=== PATIENT | female | born 1935 | race Caucasian/White ===

== ENCOUNTER 2024-11-30 11:40 | Emergency (ER) | payer MEDICARE, SELFPAY ==
--- OUTSIDE RECORDS SUMMARY | 2024-11-30 11:44 | XMS_ITS ---
Author Organization [facility] Address [address] [facility] [facility] [place] [address] Care Team Providers Care Community Board Member Name Role Phone Felix Ng MD Unavailable [phone] Wolfgang Herman MD Unavailable Unavailable Kanika Deleon MD Unavailable [phone] Sathish Asher MD Unavailable [phone] Lizbeth Price Unavailable [phone] RezaVi ames PA-C Unavailable Ileana Dee Primary Care Provider [phone] Active Problems Patient Care Coordination No te Formatting of this note migh t be different from the original. Non [place] PCP Lyric Boyd SCIENCE EDITOR Problem Noted Date Diagnosed Date Alzheimer's disease with late onset (CODE) 08/16 Chronic gout of multiple sites 03/18/2019 Diabetes mellitus type 2, diet-controlled 2018 History of cholecystectomy 03/18/2019 Irritable 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 03/18/2019 Personal history of malignant neoplasm of breast 03/18/2019 Primary osteoarthritis involving multiple joints 03/18/2019 S/P mastectomy, bilateral 03/18/2019 Nuclear sclerotic cataract of right eye 01/22/20 18 Nuclear sclerotic cataract of left eye 8 Stage 3 chronic kidney disease 10/08/2017 Typical atrial flutter 10/08/2017 Primary osteoarthritis of both knees 08/29/2017 S/P CABG x 1 02/12/2017 Hypomagnesemia 01/12/2017 Dysphagia 01/12/2017 GERD (gastroesophageal reflux disease) 7 Primary osteoarthritis of left knee, severe med 12/05/2016 Primary osteoarthritis of right knee, severe med and Pf 12/05/2016 History of cholecystitis 07/20/2016 Overview (07/20/2016): Status post laparoscopic cholecystectomy on March 09, 2016 History of biliary duct stent placement 04/14/20 16 MGUS, 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 Past Treatment and Therapy Plans Resolved Problems Problem Noted Date Diagnosed Date Resolved Date Intertrochanteric fracture o f left femur, closed, initial encounter 10/07/2017 04/12/2018 ACS (acute coronary syndrome) 02/08/2017 08/29/2017 Chest pain 01/12/2017 08/29/2017 Cholangitis 03/13/2016 07/20/2016 Cholecystitis, acute. s/p lap alexander 03/09/2016 03/09/20 16 07/20/2016 Preop cardiovascular exam 03/09/2016 Biliary obstruction 03/09/2016 07/20/19 17 Hypotension due to drugs 03/09/2016 Arthritis of knee 07/23/2014 08/29/2017 Other closed fractures of up per end of humerus 12/18/2012 08/29/2017 Dyslipidemia 09/09/2012 10/24/2012 Osteopenia 01/29/2017 Facial lesion 08/29/2017
--- OUTSIDE RECORDS SUMMARY | 2024-11-30 11:45 | XMS_ITS | Continuity of Care Document ---
Author Organization [facility] Address [address] [place] [address] Care Team Providers Care Industrial Machine Assembler Name Role Phone Felix Ng MD Unavailable [phone] Wolfgang Herman MD Unavailable Unavailable Kanika Deleon MD Unavailable [phone] Sathish Asher MD Unavailable + [phone] Lizbeth Price Unavailable [phone] RezaVi valdes PA-C Unavailable Ileana Dee Primary Care Provider [phone] Encounters Date Type Department Care Team Description 10/04/2024 Travel 10/04/2024 3:24 PM EDT - 10/04/2024 7:08 PM EDT Emergency [facility] Emergency Department [address] [place] [address] Woodrow Villa MD Hyperglycemia (Primary Dx) Discharge Disposition: Home or Self Care 09/11/2024 11:15 AM EST Office Visit [facility] Cardiology ([place]) [address] [place] [address] Felix Ng MD Coronary artery disease involving [place] coronary artery of [place] heart without angina pectoris (Primary Dx); Palpitations; Essential hypertension; Dyslipidemia; Valvular heart disease 08/08/2024 10:45 AM EST Office Visit [facility] [place] [address] [place] [address] Andrés Nuñez MD Coronary artery disease involving [place] coronary artery of [place] heart without angina pectoris (Primary Dx); Status post coronary artery bypass graft; Palpitations; Atrial flutter with rapid ventricular response (*); Valvular heart disease; Dyslipidemia; Essential hypertension; Ischemic heart disease; Mixed hyperlipidemia; Stage 3b chronic kidney disease (*) 07/23/2024 12:45 PM EST Office/Infusion [facility] [address] [place] [address] Sathish Asher MD Fowler, Jerri O History of bilateral breast cancer; Iron deficiency anemia, unspecified iron deficiency anemia type; MGUS (monoclonal gammopathy of unknown significance); Stage 3b chronic kidney disease (*) 07/02/2024 9:00 AM EST Ancillary Procedure [facility] Cardiology [facility]) [address] [place] [address] SOB (shortness of breath); Valvular heart disease; Atrial flutter with rapid ventricular response (*) 06/20/2024 8:30 AM EST Procedure visit [facility] Cardiology [facility]) [address] [place] [address] Felix Ng MD [facility] Hermelinda Misa Atrial flutter with rapid ventricular response (*); Palpitations 06/18/2024 10:00 AM EST Office Visit [facility] [place] - [address] [place] [address] Felix Ng MD Ruoff, Teresita C, DONOVANC Atrial flutter with rapid ventricular response (*) (Primary Dx); Coronary artery disease involving [place] coronary artery of [place] heart without angina pectoris; SOB (shortness of breath); Valvular heart disease; Essential hypertension; Dyslipidemia; Ischemic heart disease; Status post coronary artery bypass graft; Stage 3b chronic kidney disease (*) 06/13/2024 Travel 06/13/2024 12:45 PM EST Lab [facility] Laboratory [address] [place] [address] Felix Ng MD SOB (shortness of breath); Atrial flutter with rapid ventricular response (*); Palpitations 06/13/2024 11:30 AM EST Office Visit [facility] ([place]) [address] [place] [address] Felix Ng MD Coronary artery disease involving [place] coronary artery of [place] heart without angina pectoris (Primary Dx); SOB (shortness of breath); Atrial flutter with rapid ventricular response (*); Valvular heart disease; Essential hypertension; Dyslipidemia; Palpitations 02/04/2024 Travel 02/04/2024 11:29 AM EDT - 02/04/2024 11:59 PM EDT Hospital Encounter [facility] Radiology Department [address] [place] [address] Sathish Asher MD History of breast cancer; S/P mastectomy, bilateral; History of bilateral breast cancer; Left axillary swelling Discharge Disposition: Home or Self Care 01/21/2024 2:00 PM EDT Office/Infusion [facility] [address] [place] [address] Estiven Conley PA-C History of bilateral breast cancer (Primary Dx); History of breast cancer; S/P mastectomy, bilateral; Left axillary swelling; Encounter for follow-up surveillance of breast cancer; Iron deficiency anemia, unspecified iron deficiency anemia type; History of colonoscopy; MGUS (monoclonal gammopathy of unknown significance); Stage 3b chronic kidney disease (*); Gastroesophageal reflux disease, unspecified whether esophagitis present 01/10/2024 7:00 PM EDT Office Visit [facility] [address] [facility] [address] [place] [address] Adamaris Gonzales NP Dysuria (Primary Dx); Bacterial UTI; Glycosuria 11/19/2023 1:30 PM EDT Office Visit [facility] [address] [facility] [address] [place] [address] Vi Cobb PA-C Gastroesophageal reflux disease, unspecified whether esophagitis present (Primary Dx); Constipation, unspecified constipation type 08/13/2023 11:30 AM EST Office Visit [facility]) [address] [place] [address] Felix Ng MD Coronary artery disease involving [place] coronary artery of [place] heart without angina pectoris (Primary Dx); SOB (shortness of breath); Essential hypertension; Valvular heart disease; Dyslipidemia 06/18/2023 10:00 AM EST Ancillary Procedure [facility] ([place]) [address] [place] [address] SOB (shortness of breath) 06/12/2023 9:45 AM EST Office Visit [facility] [address] [place] [address] Vi Cobb PA-C Gastroesophageal reflux disease, unspecified whether esophagitis present (Primary Dx); Choking episode 06/01/2023 Travel 06/01/2023 7:41 AM EST - 06/01/2023 11:59 PM EST Hospital Encounter [facility] Radiology Department [address] [place] [address] Vi Cobb PA-C Gastroesophageal reflux disease, unspecified whether esophagitis present; Black stools; Chest pain, unspecified type Discharge Disposition: Home or Self Care 05/15/2023 2:10 PM EDT Office Visit [facility] ([place] [address] [place] [address] Fabiana Perez NP Essential hypertension (Primary Dx); Ischemic heart disease; Typical atrial flutter (*); Mixed hyperlipidemia; SOB (shortness of breath); Status post coronary artery bypass graft; Stage 3b chronic kidney disease (*) 05/03/2023 3:45 PM EDT Office Visit [facility] ([place] [address] [place] [address] Felix Ng MD Coronary artery disease involving [place] coronary artery of [place] heart without angina pectoris (Primary Dx); SOB (shortness of breath); Essential hypertension; Valvular heart disease; Dyslipidemia 05/01/2023 9:00 AM EDT Office Visit [facility] 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), in remission 02/19/2023 9:15 AM EDT Office/Infusion [address] [address] Sathish Asher MD Fowler, Jerri O Iron deficiency anemia, unspecified iron deficiency anemia type; History of breast cancer; MGUS (monoclonal gammopathy of unknown significance) 10/12/2022 3:15 PM EDT Office Visit [facility] ([place] [address] [place] [address] Felix Ng MD Coronary artery disease involving [place] coronary artery of [place] heart without angina pectoris (Primary Dx); SOB (shortness of breath); Essential hypertension; Valvular heart disease; Dyslipidemia 03/23/2022 Travel 03/23/2022 7:43 AM EDT - 03/23/2022 10:47 AM EDT Emergency [facility] Emergency Department [address] [place] [address] Tahir Wild DO Fall, initial encounter (Primary Dx); Sacral pain; Left hip pain Discharge Disposition: Home or Self Care 02/20/2022 Travel 02/20/2022 9:45 AM EDT Office/Infusion [address] [address] Sathish Asher MD Razzak, Jamilah, [place] Iron deficiency anemia, unspecified iron deficiency anemia type; History of breast cancer; MGUS (monoclonal gammopathy of unknown significance) 10/11/2021 Travel 10/11/2021 9:45 AM EDT Office Visit [facility]) [address] [place] [address] Felix Ng MD Coronary artery disease involving [place] coronary artery of [place] heart without angina pectoris (Primary Dx); SOB (shortness of breath); Essential hypertension; Valvular heart disease; Dyslipidemia 06/21/2021 9:30 AM EST Office Visit [facility] [address] [place] [address] Bharat Manning MD Alternating constipation and diarrhea, improved (Primary Dx); Iron deficiency anemia, unspecified iron deficiency anemia type; Gastroesophageal reflux disease without esophagitis 04/22/2021 Care Coordinates [facility] [address] [place] [address] Yasmin Del Real Counseling and coordination of care (Primary Dx) 03/17/2021 Care Coordinates [facility] [address] [place] [id number] Stormy Sommers LPN Counseling and coordination of care (Primary Dx) 02/14/2021 Travel 02/14/2021 8:45 AM EDT Office/Infusion [facility] [place] [address] [place] [address] Sathish Asher MD Hoots, Lizbeth Mahan PA History of breast cancer; Iron deficiency anemia, unspecified iron deficiency anemia type; MGUS (monoclonal gammopathy of unknown significance); Hypercalcemia 11/05/2020 11:20 AM EDT Ancillary Procedure [facility] Orth[facility] ([place]) [address] [place] [address] Macario Estevez MD 11/05/2020 Travel 11/05/2020 10:45 AM EDT Office Visit [facility] ([place]) [address] [place] [address] Mendel Han PA-C Chronic pain of right ankle (Primary Dx); Achilles tendinitis of right lower extremity 10/06/2020 Travel 10/06/2020 1:30 PM EDT Office Visit [facility] ([place]) [address] [place] [address] Felix Ng MD Coronary artery disease involving [place] coronary artery of [place] heart without angina pectoris (Primary Dx); SOB (shortness of breath); Essential hypertension; Valvular heart disease; Dyslipidemia 08/02/2020 Travel 08/02/2020 1:00 PM EST Office/Infusion [facility] [place] [address] [address] Sathish Asher MD Surratt, Jennifer K History of breast cancer; Iron deficiency anemia, unspecified iron deficiency anemia type; MGUS (monoclonal gammopathy of unknown significance); Hypercalcemia 03/09/2020 9:45 AM EDT Office Visit [facility] [address] [place] [address] Elisa Goodson PA-C Alternating constipation and diarrhea, improved (Primary Dx); Chronic nausea; Iron deficiency anemia, unspecified iron deficiency anemia type; Other irritable bowel syndrome 12/12/2019 1:15 PM EDT Ancillary Procedure [facility] Orthopedics [facility] Sports [facility] - [address] [place] [address] Juanito Christine PA-C 12/12/2019 Travel 12/12/2019 1:30 PM EDT Office Visit [facility] Orth[facility] - [address] [place] [address] Juanito Christine PACoreyC Left ankle pain, unspecified chronicity (Primary Dx); Tendonitis, Achilles, left 10/01/2019 Travel 10/01/2019 2:45 PM EDT Office Visit [facility] ([place] [address] [place] [address] Felix Ng MD Coronary artery disease involving [place] coronary artery of [place] heart without angina pectoris (Primary Dx); SOB (shortness of breath); Valvular heart disease; Essential hypertension; Dyslipidemia 07/14/2019 Care Coordinates Care Coordinates [address] [facility] [address] [place] [address] Cathleen Hahn, RN, BSN Counseling and coordination of care (Primary Dx) 07/09/2019 Travel 07/09/2019 12:24 AM EST - 07/09/2019 2:03 AM EST Emergency [facility] Emergency Department [address] [place] [address] Grey Washington MD Gastroenteritis (Primary Dx); Costochondritis, acute; Hypomagnesemia Discharge Disposition: Home or Self Care 05/30/2019 Travel 05/30/2019 2:00 PM EST Ancillary Procedure [facility] ([place] [address] [place] [address] Felix Ng MD Coronary artery disease involving [place] coronary artery of [place] heart without angina pectoris; SOB (shortness of breath); Valvular heart disease 05/23/2019 2:45 PM EST Office Visit [facility] [address] [address] [place] [address] Bharat Manning MD Iron deficiency anemia, unspecified iron deficiency anemia type (Primary Dx); Fatigue, unspecified type; Irritable bowel syndrome with diarrhea; Nausea and vomiting, intractability of vomiting not specified, unspecified vomiting type 04/02/2019 8:55 AM EDT Ancillary Procedure [facility] ([place]) [address] [place] [address] Wolfgang Herman MD 04/02/2019 Travel 04/02/2019 9:00 AM EDT Office Visit [facility] ([place] [address] [place] [address] Wolfgang Herman MD Left hip pain (Primary Dx); Trochanteric bursitis of left hip 03/25/2019 1:58 PM EDT Anesthesia Event [facility] Endoscopy Services [address] [place] [address] Home Saenz MD 03/25/2019 Travel 03/25/2019 12:06 PM EDT - 03/25/2019 11:59 PM EDT Hospital Encounter [facility] End[facility] Services [address] [place] [address] Hamzah, Elisa A, PA-C [facility] owen MD Periard, Shelli A, CRNA Ramsay, David B, MD Iron deficiency anemia, unspecified iron deficiency anemia type; Weight loss; Fatigue, unspecified type; Weakness Discharge Disposition: Home or Self Care 03/07/2019 Travel 03/07/2019 7:47 AM EDT - 03/07/2019 8:37 AM EDT Emergency [facility] Emergency Department [address] [place] [address] Елена Hunt MD Visit for suture removal (Primary Dx) Discharge Disposition: Home or Self Care 03/03/2019 Care Coordinates Care Coordinates [address] [facility] [address] [place] [address] pEifanio Wolfe LPN Counseling and coordination of care (Primary Dx) 03/03/2019 3:00 PM EDT Office Visit [facility] [address] [place] [address] Elisa Goodson PA-C Iron deficiency anemia, unspecified iron deficiency anemia type (Primary Dx); Weight loss; Fatigue, unspecified type; Weakness 03/03/2019 Travel 03/03/2019 11:45 AM EDT Office Visit [facility] Cardiology [facility]) [address] [place] [address] Felix Ng MD Coronary artery disease involving [place] coronary artery of [place] heart without angina pectoris (Primary Dx); SOB (shortness of breath); Valvular heart disease; Generalized weakness; Essential hypertension; Dyslipidemia 02/28/2019 Travel 02/28/2019 6:49 AM EDT - 02/28/2019 11:15 AM EDT Emergency [facility] Emergency Department [address] [place] [address] Woodrow Capone MD Fall, initial encounter (Primary Dx); Contusion of left eyelid, subsequent encounter; Contusion of left wrist, initial encounter; Shoulder strain, left, initial encounter; Facial laceration, initial encounter Discharge Disposition: Home or Self Care 02/05/2019 Travel 02/05/2019 7:03 AM EDT - 02/05/2019 11:59 PM EDT Hospital Encounter [facility] Imaging [address] [place] [address] Elisa Goodson PA-C Nausea and vomiting, intractability of vomiting not specified, unspecified vomiting type; Diarrhea, unspecified type Discharge Disposition: Home or Self Care 01/29/2019 9:45 AM EDT Office/Infusion [facility] [address] [facility] [address] Lizbeth Price PA Reavis, Judith Daniel, WOUND CARE COORDINATOR History of breast cancer; Iron deficiency anemia, unspecified iron deficiency anemia type; MGUS (monoclonal gammopathy of unknown significance); Hypercalcemia 01/14/2019 Travel 01/14/2019 11:45 AM EDT - 01/14/2019 11:59 PM EDT Hospital Encounter [facility] Radiology Department [address] [place] [address] Elisa Goodson PA-C Alternating constipation and diarrhea Discharge Disposition: Home or Self Care 01/14/2019 10:30 AM EDT Lab [facility] Osteoporosis [address] [address] Yanni Benavidez CMA Hypocalcemia 12/27/2018 Travel 12/27/2018 9:40 AM EDT Office Visit [facility] Osteoporosis [address] [address] Elisabeth Dunn PA-C Encounter for medication management (Primary Dx); Encounter for vitamin deficiency screening; History of hip fracture; Hypocalcemia 12/12/2018 2:00 PM EDT Office Visit [facility] [address] [place] [address] Travon Zuñiga MD Malaise and fatigue (Primary Dx); Diarrhea, unspecified type; Nausea; Abnormal urinalysis 11/25/2018 Travel 11/25/2018 11:30 AM EDT Office Visit [facility] [address] [place] [address] Abelardo Addison FNP Fall, subsequent encounter (Primary Dx); Injury of right wrist, subsequent encounter; Contusion of right hip, subsequent encounter; Hospital discharge follow-up 11/16/2018 Travel 11/16/2018 11:34 AM EDT - 11/16/2018 1:36 PM EDT Emergency [facility] Emergency Department [address] [place] [address] Елена Hunt MD Injury of right wrist, initial encounter (Primary Dx) Discharge Disposition: Home or Self Care 10/24/2018 9:00 AM EDT Medicare AWV [address] [address] Travon Zuñiga MD Type 2 diabetes mellitus without complication, without long-term current use of insulin (*) (Primary Dx); Essential hypertension; Mixed hyperlipidemia; History of gout; Iron deficiency anemia, unspecified iron deficiency anemia type; Gait instability; Medicare annual wellness visit, subsequent 08/14/2018 1:45 PM EST Office/Infusion [facility] [address] [facility] [address] Lizbeth Price PA Reavis, Yoly Mistry, WOUND CARE COORDINATOR History of breast cancer; Iron deficiency anemia, unspecified iron deficiency anemia type; MGUS (monoclonal gammopathy of unknown significance); Hypercalcemia 08/09/2018 9:30 AM EST Office Visit [address] [address] Travon Zuñiga MD Type 2 diabetes mellitus without complication, without long-term current use of insulin (*) (Primary Dx); Essential hypertension; Mixed hyperlipidemia; History of gout; Iron deficiency anemia, unspecified iron deficiency anemia type; Skin lesion of right ear 07/22/2018 1:15 PM EST Office Visit [facility] [address] [facility] [place] [address] Elisa Goodson PA-C Irritable bowel syndrome with diarrhea (Primary Dx) 07/01/2018 4:30 PM EST Office Visit [address] [address] Abelardo Addison FNP History of UTI (Primary Dx); Abnormal urinalysis; Type 2 diabetes mellitus without complication, without long-term current use of insulin (*); Primary osteoarthritis of both knees; Memory difficulty 05/29/2018 2:00 PM EST Office Visit [facility] Cardiology ([place]) [address] [place] [address] Felix Ng MD Coronary artery disease involving [place] coronary artery of [place] heart without angina pectoris (Primary Dx); SOB (shortness of breath); Essential hypertension; Dyslipidemia 05/07/2018 10:00 AM EDT Lab [facility] [address] [place] [address] Augustin Bautista LPN Hypocalcemia 04/18/2018 8:30 AM EDT Immunization [facility] [address] [place] [address] Need for prophylactic vaccination and inoculation against influenza 04/12/2018 8:45 AM EDT Office Visit [facility] [address] [place] [address] Travon Zuñiga MD Type 2 diabetes mellitus without complication, without long-term current use of insulin (*) (Primary Dx); Essential hypertension; Iron deficiency anemia, unspecified iron deficiency anemia type 04/11/2018 3:15 PM EDT Office Visit [facility] [address] [facility] [place] [address] Elisa Goodson PA-C Diarrhea, unspecified type (Primary Dx); Nausea 04/09/2018 2:10 PM EDT Procedure visit [facility] ([place]) [address] [place] [address] Wolfgang Herman MD Mitchell, Rebekah, RT (R) Pain (Primary Dx) 04/09/2018 1:50 PM EDT Office Visit [facility] ([place]) [address] [place] [address] Wolfgang Herman MD Bilateral chronic knee pain (Primary Dx); Coronary artery disease involving autologous vein coronary bypass graft with other forms of angina pectoris; Primary osteoarthritis of right knee, severe med and Pf; Primary osteoarthritis of left knee, severe med 02/12/2018 1:43 AM EDT - 02/12/2018 4:21 AM EDT Emergency [facility] Emergency Department [address] [place] [address] Sinan Saldivar MD Generalized abdominal pain (Primary Dx) Discharge Disposition: Home or Self Care 01/25/2018 11:00 AM EDT Lab [facility] Osteoporosis - [place] [address] [place] [address] Yanni Benavidez MACHINE PACKAGE SEALER Hypocalcemia 01/23/2018 9:20 AM EDT - 01/23/2018 9:45 AM EDT Surgery [facility] Surgical Services [address] [place] [address] Ron Harper MD RIGHT EYE CATARACT EXTRACTION WITH INTRAOCULAR IMPLANT 01/23/2018 8:54 AM EDT Anesthesia Event [facility] Surgical Services [address] [place] [address] Augustin Dodge MD Sojka, Peter J, MD 01/23/2018 7:08 AM EDT - 01/23/2018 9:31 AM EDT Hospital Encounter [facility] Surgical Services [address] [place] [address] Ron Harper MD Nuclear sclerotic cataract of right eye (Primary Dx) Discharge Disposition: Home or Self Care 01/08/2018 2:00 PM EDT ADD/ADHD [facility] [address] [place] [address] Travon Zuñiga MD Type 2 diabetes mellitus without complication, without long-term current use of insulin (*) (Primary Dx); Essential hypertension; Mixed hyperlipidemia; History of gout; Iron deficiency anemia, unspecified iron deficiency anemia type; Primary osteoarthritis of both knees 01/04/2018 9:30 AM EDT Lab [facility] Osteoporosis - [place] [address] [place] [address] Yanni Benavidez MACHINE PACKAGE SEALER Hypercalcemia 01/02/2018 9:40 AM EDT - 01/02/2018 10:10 AM EDT Surgery [facility] Surgical Services [address] [place] [address] Ron Harper MD LEFT EYE CATARACT EXTRACTION WITH INTRAOCULAR IMPLANT 01/02/2018 9:08 AM EDT Anesthesia Event [facility] Surgical Services [address] [place] [address] Augustin Dodge MD Baird, Kelly W, MD 01/02/2018 7:25 AM EDT - 01/02/2018 9:39 AM EDT Hospital Encounter [facility] Surgical Services [address] [place] [address] Ron Harper MD Nuclear sclerotic cataract of left eye (Primary Dx) Discharge Disposition: Home or Self Care 01/01/2018 11:15 AM EDT - 01/01/2018 11:59 PM EDT Hospital Encounter [facility] Radiology Department [address] [place] [id number] Jairo Johnson MD MGUS (monoclonal gammopathy of unknown significance) Discharge Disposition: Home or Self Care 01/01/2018 10:30 AM EDT Office Visit [facility] [address] [facility] [place] [address] Jairo Johnson MD History of breast cancer; MGUS (monoclonal gammopathy of unknown significance) 12/28/2017 9:00 AM EDT Lab [facility] Osteoporosis - [address] [address] Yanni Benavidez CMA Hypocalcemia; Other osteoporosis without current pathological fracture 12/26/2017 Documentation Only [facility] - [place] [address] [place] [phone] Elisabeth Dunn PA-C 12/26/2017 12:48 PM EDT - 12/26/2017 4:06 PM EDT Emergency [facility] Emergency Department [facility] [place] [address] Sinan Singh MD Arthralgia, unspecified joint (Primary Dx) Discharge Disposition: Home or Self Care 12/25/2017 Prep for Surgery [facility] [place] [address] Ron Harper MD Nuclear sclerotic cataract of left eye; Nuclear sclerotic cataract of right eye 12/25/2017 9:00 AM EDT Lab [facility] [address] [place] [address] Bety Seth MOA Type 2 diabetes mellitus without complication, without long-term current use of insulin (*); History of gout; Hypocalcemia 12/20/2017 1:15 PM EDT Office Visit [facility] [address] [facility], [place] [address] Kanika Deleon MD Irritable bowel syndrome, unspecified type (Primary Dx); Lactose intolerance in adult; Bilious vomiting with nausea; Regurgitation; Diarrhea, unspecified type 12/19/2017 8:30 AM EDT Further Clinical Support [facility] Osteoporosis - [address] [address] Elisabeth Dunn PAAugustin Gates LPN Other osteoporosis without current pathological fracture; Encounter for medication management; Encounter for vitamin deficiency screening; History of femur fracture; History of humerus fracture 12/04/2017 3:00 PM EDT Office Visit [address] [address] Elisabeth Dunn PACoreyC Other osteoporosis without current pathological fracture (Primary Dx); Encounter for medication management; Encounter for vitamin deficiency screening; History of femur fracture; History of humerus fracture; History of vitamin D deficiency 11/19/2017 11:34 AM EDT - 11/19/2017 11:59 PM EDT Hospital Encounter [facility] Imaging [address] [address] Elisabeth Dunn PACoreyC Other osteoporosis without current pathological fracture; Encounter for medication management; Encounter for vitamin deficiency screening; History of femur fracture; History of vitamin D deficiency Discharge Disposition: Home or Self Care 11/19/2017 9:20 AM EDT Office Visit [facility] Osteopor[facility] [address] [place] [address] Elisabeth Dunn PA-C Other osteoporosis without current pathological fracture (Primary Dx); Encounter for medication management; Encounter for vitamin deficiency screening; History of femur fracture; History of vitamin D deficiency 11/12/2017 9:45 AM EDT Office Visit [facility] [address] [place] [address] Travon Zuñiga MD Closed displaced intertrochanteric fracture of left femur with routine healing (Primary Dx) 11/06/2017 3:15 PM EDT Office Visit [facility] [address] [place] [address] Travon Zuñiga MD Intractable diarrhea (Primary Dx); Type 2 diabetes mellitus without complication, without long-term current use of insulin (*); History of gout 10/07/2017 4:16 AM EDT - 10/10/2017 2:09 PM EDT Hospital Encounter [facility] Orthopedics [address] [place] [phone] Waldo Heaton DO Intertrochanteric fracture of left femur, closed, initial encounter (*) (Primary Dx); Fall at home, initial encounter; Acute hip pain, left; Hematoma of left hip, initial encounter; Closed fracture of right hip, initial encounter (*); Type 2 diabetes mellitus with hyperglycemia, without long-term current use of insulin (*); Type 2 diabetes mellitus without complication, without long-term current use of insulin (*); Essential hypertension; Mixed hyperlipidemia; Coronary artery disease involving [place] coronary artery of [place] heart without angina pectoris; History of gout; Typical atrial flutter (*) Discharge Disposition: SNF [facility] Medicare Bed 10/07/2017 10:34 AM EDT Anesthesia Event [facility] Surgical Services [address] [place] [phone] Waldo Meade MD Smith, Rachel H, CRNA 10/07/2017 10:00 AM EDT - 10/07/2017 11:28 AM EDT Surgery [facility] Surgical Services [address] [place] [address] Waldo Heaton DO LEFT HIP ORIF 10/04/2017 11:02 AM EDT - 10/04/2017 11:59 PM EDT Hospital Encounter [facility] Radiology Department [address] [place] [address] Les Hathaway MD Bilious vomiting with nausea Discharge Disposition: Home or Self Care 09/14/2017 12:45 PM EST Office Visit [facility] [address] [place] [address] Les Hathaway MD Bilious vomiting with nausea (Primary Dx) 08/29/2017 3:00 PM EST Medicare AWV [address] [address] Travon Zuñiga MD Medicare annual wellness visit, subsequent (Primary Dx); Type 2 diabetes mellitus without complication, without long-term current use of insulin (*); Essential hypertension; Mixed hyperlipidemia; History of gout; Primary osteoarthritis of both knees 08/27/2017 9:30 AM EST Lab [address] [address] Bety Seth MOA Iron deficiency anemia, unspecified iron deficiency anemia type; Type 2 diabetes mellitus without complication, without long-term current use of insulin (*); History of gout 08/02/[address] [address] Travon Zuñiga MD Iron deficiency anemia, unspecified iron deficiency anemia type (Primary Dx); History of gout; Type 2 diabetes mellitus without complication, without long-term current use of insulin (*) 07/20/2017 3:00 PM EST Office Visit [address] [address] Jesus Almeida MD Acute suppurative otitis media of left ear without spontaneous rupture of tympanic membrane, recurrence not specified (Primary Dx) 07/02/2017 5:20 PM EST Office Visit [facility] [address] [place] [address] Abelardo Addison FNP URI with cough and congestion (Primary Dx); Gastroesophageal reflux disease without esophagitis 06/20/2017 9:30 AM EST Office Visit [facility] [address] [place] [address] Travon Zuñiga MD Hospital discharge follow-up (Primary Dx); Type 2 diabetes mellitus without complication, without long-term current use of insulin (*); Gastroesophageal reflux disease, esophagitis presence not specified 06/19/2017 9:10 AM EST Office Visit [facility] ([place] [address] [place] [address] Wolfgang Herman MD Primary osteoarthritis of left knee, severe med (Primary Dx); Primary osteoarthritis of right knee, severe med and Pf 05/03/2017 3:00 PM EDT Immunization [facility] [address] [place] [address] Need for prophylactic vaccination and inoculation against influenza 04/19/2017 2:45 PM EDT Office Visit [facility] Cardiology ([place]) [address] [place] [address] Felix Ng MD Coronary artery disease involving [place] coronary artery of [place] heart without angina pectoris (Primary Dx); SOB (shortness of breath); Essential hypertension; Dyslipidemia 02/12/2017 5:40 AM EDT - 02/12/2017 11:59 PM EDT Hospital Encounter [facility] Critical Care Transport [address] [place] [address] Abelardo Salazar MD Khawaja, Usman A, MD Discharge Disposition: Acute Care Hospital- Critical Access Hospital 02/12/2017 7:40 AM EDT - 02/12/2017 8:40 AM EDT Surgery [id number]|2024-11-30 11:45:00|2024-11-30 11:45:00|XMS_ITS|BKG CHRISTINA|External Medical Summaries|[id number]|" Clinical Summary Created on: November 30, 2024 Mary Isidro : 1935 Sex: Female Author Organization [facility] visits prior to 09/15/2023[place] [address] Care Team Providers Care Industrial Machine Assembler Name Role Phone Donovan DANIELS MD, Akira Quan Unavailable + [phone] Lyric Boyd MUSIC DIRECTOR Primary Care Provider [phone] Allergies Active Allergy Reactions Criticality Noted Date Comments Donepezil Other (See Comments) 06/18/2019 confusion Ciprofloxacin Diarrhea Low 02/27/2012 cipro Propoxyphene N-Acetaminophen Nausea (intolerance),Nause a & Vomiting (ALLERGY/intoleranc e),Other (See Comments) Medium 07/19/2012 Propoxyphene Nausea (intolerance) 07/19/2012 Hydrocodone-Acetaminophe n Nausea & Vomiting (ALLERGY/intoleranc e) Medium 11/19/2017 With ALL narcotics Zoledronic Acid Other (See Comments) Medium 12/31/2017 Caused calcium to be drawn out of bones Medications Medication Sig Dispensed Refills Start Date End Date Status OMEGA-3/DHA/EPA/FISH OIL (FISH OIL-OMEGA-3 FATTY ACIDS) 300-1,000 mg capsule Take 2 capsules (2 g total) by mouth daily. 0 Active simvastatin (ZOCOR) 10 MG tabletIndications:Pure hypercholesterolemia Take 1 tablet (10 mg total) by mouth nightly. 90 tablet 1 9 Active ondansetron (ZOFRAN) 4 MG tabletIndications:Nausea TAKE 1 TABLET BY MOUTH EVERY 8 HOURS NEEDED FOR NAUSEA / VOMITING. 30 tablet 0 0 Active latanoprost (XALATAN) 0.005 % ophthalmic solution Place 1 drop into both eyes nightly. 0 1 Active blood-glucose meter kit One touch ultra (Use to test sugar daily) 1 each 0 2 Active cinnamon bark, bulk, Powd Take 1,000 mg by mouth daily. 0 Active lidocaine (LIDODERM) 5 % patchIndications:Pain in the coccyx Apply patch to painful area. Patch may remain in place for up to 12 hours in a 24 hour period. 30 patch 0 2 Active Additional Information Patient taking differently: Apply patch to painful area as needed. Patch may remain in place for up to 12 hours in a 24 hour period., Informant: Child, Pharmacy, Reported on 01/12/2023 ferrous sulfate 325 (65 FE) MG EC tabletIndications:Iron 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 Take 1 tablet twice daily 180 tablet 2 2 Active Additional Information Patient taking differently: Take 1 tablet BY MOUTH ONCE daily, Informant: Child, Reported on 01/12/2023 atenoloL (TENORMIN) 25 MG tabletIndications:Essenti al hypertension TAKE 1 TABLET BY MOUTH DAILY 90 tablet 3 3 Active miscellaneous medical supply Mis Rolling walker with seat........... ..(M17.0)...... ...patient is requesting a size petite 1 each 0 3 Active lactobacillus rhamnosus, GG, (CULTURELLE) 10 billion cell capsule Take 1 capsule by mouth daily. 0 Active acetaminophen (TYLENOL) 650 MG CR tablet Take 1 tablet (650 mg total) by mouth every 8 (eight) hours as needed for Pain. 0 Active allopurinoL (ZYLOPRIM) 100 MG tablet TAKE 1 TABLET BY MOUTH DAILY 90 tablet 3 3 Active diclofenac (VOLTAREN) 1 % Gel gelIndications:Primary osteoarthritis involving multiple joints APPLY 1 GRAM TO AFFECTED AREA(S) TOPICALLY 2 TO 3 TIMES DAILY 300 g 3 3 Active pantoprazole (PROTONIX) 40 MG tabletIndications:Gastroe sophageal reflux disease without esophagitis TAKE 1 TABLET BY MOUTH DAILY 90 tablet 3 3 Active amLODIPine (NORVASC) 5 MG tablet Take 1 tablet (5 mg total) by mouth daily. 0 3 Active potassium chloride ER (KLOR-CON-M, K-DUR) 20 MEQ extended release tablet TAKE 1 TABLET BY MOUTH DAILY 90 tablet 3 3 Active ONETOUCH DELICA PLUS LANCET 30 gauge Misc USE TO CHECK BLOOD SUGAR TWICE DAILY 200 each 3 3 Active blood sugar diagnostic (ONETOUCH ULTRA TEST) Strp test strips CHECK BLOOD SUGAR TWICE DAILY 200 strip 3 4 Active dapagliflozin propanediol (FARXIGA) 5 mg tabletIndications:Type 2 diabetes mellitus with diabetic nephropathy, without long-term current use of insulin (HCC) Take 1 tablet (5 mg total) by mouth daily. 30 tablet 5 4 Active glimepiride (AMARYL) 4 MG tabletIndications:Type 2 diabetes mellitus with stage 3a chronic kidney disease, without long-term current use of insulin (HCC) Take 1 tablet (4 mg total) by mouth daily before breakfast. 90 tablet 3 4 Active Active Problems Problem Noted Date Diagnosed Date Moderate late onset Alzheimer's dementia 024 Stage 3b chronic kidney disease 01/20/2023 H/O total knee replacement, right 01/15/2023 Primary osteoarthritis of right knee 01/11/2023 Type 2 diabetes mellitus with diabetic nephropat hy 10/19/2022 Overview: 08/04/22 visit - addressed nephropathy query - Stable based upon symptoms and exam. Continue current treatment plan and follow up at least yearly. Diabetes 10/19/2022 Overview: 12/07/21 visit - A1C was found to be 8.1% Memory deficit 09/05/2022 Chronic right shoulder pain 08/04/2022 Primary osteoarthritis of knees, bilateral 05/18 Malaise 05/07/2019 Pure hypercholesterolemia 03/18/2019 Gastroesophageal reflux disease without esophagi tis 03/18/2019 Coronary artery disease invo lving [place] coronary artery of [place] heart without angina pectoris 03/18/2019 S/P CABG x 1 03/18/2019 Chronic gout of multiple sites 03/18/2019 Primary osteoarthritis involving multiple joints 03/18/2019 History of cholecystectomy 03/18/2019 Essential hypertension 03/18/2019 Irritable 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 03/18/2019 Iron deficiency anemia varun samson to inadequate dietary iron intake 03/18/2019 History of right breast cancer 03/18/2019 History of cancer of left breast 03/18/2019 S/P mastectomy, bilateral 03/18/2019 Resolved Problems Problem Noted Date Diagnosed Date Resolved Date Gastroenteritis 07/14/2019 09/17/2019 Weight loss, abnormal 03/18/20192020 Choledocholithiasis with acu te cholecystitis with obstruction 03/22/2016 03/18/2019 Sebaceous cyst 10/14/2015 03/18/2019 Solar keratosis, lip 08/01/2012 019 Inflamed sebaceous cyst 07/19/201209/2018 Immunizations Name Administration Dates Next Due Flu Vaccine 65yr Or Older (H IGH DOSE QUAD-FLUZONE) Inactivated Quadrivalent 04/17/2023,04/13/2022,05/02/2021 Flu Vaccine 6mo and up (FLUZONE/FLULAVAL/FLUARIX VIAL OR SYRINGE) INACTIVATED QUADRAVALENT 04/13/2020,05/07/2019 Influenza (Historical) 04/18/2018,2016,05/19/2016,2014,04/24/2014,04/14/2013,05/14/2010 Pneumococcal (Historical) 12/30/2013 Purple Top Pfizer SARS-CoV-2 Vaccine 03/17/2021, 02/24/2021 Tdap (ADACEL, BOOSTRIX) 02/28/2019 flu Vaccine 65yr or Older (H IGH DOSE-FLUZONE) Inactivated Trivalent 04/18/2018,05/03/2017 pneumococcal conjugate 13-va lent (PREVNAR 13) 03/18/2019 Family History Medical History Relation Comments Heart disease Father Dementia Mother Diabetes Mother Cancer Neg Hx Relation Status Comments Father Mother Social History Tobacco Use Types Packs/Day Years Used Date Smoking Tobacco: Never Smokeless Tobacco: Never Tobacco Cessation:Counseling Given: Not Answered Alcohol Use Standard Drinks/Week Comments No 0 (1 standard drink = 0.6 oz pur e alcohol) Utilities Answer Date Recorded In the past 12 months has e [employer], gas, oil, or water [employer] threatened to shut off services in your home? No 07/23/2023 Social Connection and Isolation Panel [NHANES] A nswer Date Recorded In a typical week, how many times do you talk on the phone with family, friends, or neighbors? Once a week 02/09/20 How often do you get togethe r with friends or relatives? Patient refused 02/08/2023 How often do you attend chur ch or congregational services? 1 to 4 times per year 02/08/2023 Do you belong to any clubs o r organizations such as mandaeism groups, unions, fraternal or athletic groups, or school groups? No 02/08/2023 How often do you attend meet ings of the clubs or organizations you belong to? Never 02/08/2023 Are you , , di vorced, , never , or living with a partner? 02/08/2023 AUDIT-C Answer Date Recorded Q1: How often do you have a drink containing alcohol? Never 02/08/2023 Q2: How many drinks containi ng alcohol do you have on a typical day when you are drinking? Patient does not drink Q3: How often do you have si x or more drinks on one occasion? Never 02/08/2023 Overall Financial Resource Strain (CARDIA) Answe r Date Recorded How hard is it for you to pa y for the very basics like food, housing, medical care, and heating? Somewhat hard 02/08/2023 PHQ-2 Answer Date Recorded SDWA PHQ2 SCORE 0 08/16/2023 [facility] Questionnaire Answer Date Recorded Do you feel stress - tense, restless, nervous, or anxious, or unable to sleep at night because your mind is troubled all the time - these days? Only a little 02/08/2023 Exercise Vital Sign Answer Date Recorde d On average, how many days pe r week do you engage in moderate to strenuous exercise (like a brisk walk)? 0 days 02/08/2023 On average, how many minutes do you engage in exercise at this level? 10 min 02/08/2023 Hunger Vital Sign Answer Date Recorded Within the past 12 months, y ou worried that your food would run out before you got the money to buy more. Sometimes true Within the past 12 months, t he food you bought just didn't last and you didn't have money to get more. Patient refused 02/2024 PRAPARE - Transportation Answer Date Re corded In the past 12 months, has l ack of transportation kept you from medical appointments or from getting medications? No 02/2024 In the past 12 months, has l ack of transportation kept you from meetings, work, or from getting things needed for daily living? No 07/23/2023 Housing Stability Vital Sign Answer Gustavo e Recorded In the last 12 months, was t here a time when you were not able to pay the mortgage or rent on time? Patient refused 07/23/19 24 Number of Places Lived in the Last Year Not on f ile 07/23/2023 In the last 12 months, was t here a time when you did not have a steady place to sleep or slept in a assisted (including now)? No 07/23/2023 Sex and Gender Information Value Date Recorded Sex Assigned at Not on file Gender Identity Not on file Sexual Orientation Not on file Last Filed Vital Signs Vital Sign Reading Time Taken Comments Blood Pressure 145/62 08/16/2023 11:32 AM EST Pulse 65 08/16/2023 11:32 AM EST Temperature 36.3 C (97.3 F) 08/16/2023 11:32 AM EST Respiratory Rate 17 08/16/2023 11:3 2 AM EST Oxygen Saturation 99% 08/16/2023 11: 32 AM EST Inhaled Oxygen Concentration - - Weight 66.6 kg (146 lb 12.8 oz) 024 11:32 AM EST Height 149.9 cm (4' 11 ) 08/16/2023 11: 32 AM EST Body Mass Index 29.65 08/16/2023 11:32 AM EST Plan of Treatment Health Maintenance Due Date Last Done Comments URINE MICROALBUMIN 10/18/2023 10/17/2022, 0 10/19/2020, 09/17/2019 HEMOGLOBIN A1C 01/22/2024 07/24/2023, 08/0 07/2022, 10/17/2022, Additional history exists Medicare Annual Wellness Visit 02/17/2024 0 02/16/2023, 02/07/2022, 01/21/2021, Additional history exists COVID-19 Vaccine (2022-2 4 season) 2024 03/17/2021, 02/24/2021 FOOT EXAM 07/26/2024 07/26/2023, 07/16, 04/13/2022, Additional history exists OPHTHALMOLOGY EXAM 08/09/2024 08/09/2023, 1 , 04/12/2023, Additional history exists INFLUENZA VACCINE 02/13/2025 04/17/2023, , 05/02/2021, Additional history exists Goals Goal Patient Goal Type Associated Problems Recent Progress Patient-Stated? Author Physical Therapy Goals PT Goals No Diane Gurrola, PT Note: Short Term Goals (STG) - Time Frame 4 weeks STG 1: Patient will be able to achieve at least a 10 degree improvement in R knee extension to improve gait quality (baseline -24 degrees). Met: -10 degrees 03/20/23 STG 2: Patient will be able to achieve 120 degrees of R knee flexion in order to improve ability to transfer out of a chair. (Baseline: 114 degrees), met - 122 degrees 03/20/23 Skilled Nursing Goals (LTG) - Time Frame 8 weeks LTG 1: Patient will be able to ambulate 300' for community ambulation with LRAD to be able to go to the store with her daughter. - partially met 04/10/23, 296 feet around clinic with SPC usage LTG 2: Patient to be able to achieve personal goal of returning to driving. - not driving due to eye issues and concerns of memory issues LTG 3: Patient will achieve > 120 degrees R knee flexion to be able to ascend/descend steps with a reciprocal pattern. - met 04/12 120 degrees R knee AROM LTG 4: Patient will be able to achieve within 5 degrees of full R knee ex for improved gait pattern. - not met, plauted at -12 degrees R knee AROM LTG 5: Patient will be able to achieve at least 4+ R LE strength globally to improve functional independence with ADL's - partially met 04/12 R L Hip flexion 5 4 abduction 4 4 adduction 4 4 IR 4+ 4+ ER 4+ 4+ Knee Flex 5 5 Ex 5 5 Ankle DF 4 5 LTG 6: Patient will be able to stand on R LE with no UE support for 5-10 seconds for decreased fall risk. - 04/12 3s hold before LOB, vision contributing to balance LTG 7: Patient will be able to improve overall functioning with KOOS score from 13 to <5 . - 04/12 KOOS score 6 Medical Devices Implanted Type Area Ampoule Examiner Device Identifier Shelf Expiration Date Model / Serial / Lot Cement Bone Simplex P Tobramycin Full Dose Radiopaque Preblend Sterile - [id number] Implanted:Qty: 2 on 01/15/2023 by Oc Fatima MD at [facility] [employer]. Right: Knee [employer] [id number] 04/14/2024 6197-9-00 1 / / [id number] Component Patellar Triathlon X3 H9 Mm Od29 Mm Knee Asymmetric Sterile - [id number] Implanted:Qty: 1 on 01/15/2023 by Oc Fatima MD at [facility] Other Right: Knee [employer] 11/20/2027 5551-G-29 9-E / / [id number] Peg Fixation Triathlon Knee Femoral Modular - [id number] Implanted:Qty: 1 on 01/15/2023 by Oc Fatima MD at [facility] Other Right: Knee [employer] 07/01/2027 5575-X-00 0 / / [id number] Component Femoral Triathlon 2 Knee Right Posterior Stabilize Cement Sterile Latex Free Total Knee Arthroplasty - [id number] Implanted:Qty: 1 on 01/15/2023 by Oc Fatima MD at [facility] Other Right: Knee [employer] 09/14/2024 5515-F-20 2 / / [id number] Baseplate Tibial Triathlon Cocr 2 [place] Knee Cement Total Stabilize Sterile Latex Free - [id number] Implanted:Qty: 1 on 01/15/2023 by Oc Fatima MD at [facility] Other Right: Knee [employer] 11/01/2027 5521-B-20 0 / / [id number] Tibial H9 Mm 2 Posterior Stabilize Bearing Triathlon Insert X3 Knee Sterile Latex Free - [id number] Implanted:Qty: 1 on 01/15/2023 by Oc Fatima MD at [facility] Other Right: Knee [employer] [id number] 09/11/2027 5532-G-20 9-E / / [id number] Advance Directives Documents on File Type Date Recorded Patient Hotel Front Desk Clerk Expl anation Power of It Support Manager 04/03/2022 8:46 AM HC Po A Latest Code Status on File Code Status Date Activated Date Inactivated Comments Full Code 01/16/2023 1:06 PM Code Status History Code Status Date Activated Date Inactivated Comments Full Code 01/15/2023 10:07 AM 01/16/2023 1:06 PM Care Teams Industrial Machine Assembler Relationship Specialty Start Date End Date Lyric Boyd NP [address] [place] [id number] PCP - General Nurse Practitioner 03/06/19 Akira Man II, MD [address] [place] [id number] Referring Provider Surgery 07/19/12 "
--- OUTSIDE RECORDS SUMMARY | 2024-11-30 11:46 | XMS_ITS | Encounter Summary ---
Author Organization [facility] Address [address] [facility] [place] [address] Care Team Providers Care Visitor Services Representative Name Role Phone Home [place] REGINALD Unavailable [phone] Patricio Gaona MD Unavailable [phone] Lexi Head RN Unavailable Unavailable Felix Ng MD Unavailable [phone] Les Hathaway MD Unavailable [phone] Wolfgang Herman MD Unavailable Unavailable Kanika Deleon MD Unavailable [phone] Lyric Byod COAT OPERATOR INSULATOR Primary Care Provider + [phone] Sathish Asher MD Unavailable + [phone] Lizbeth Price Unavailable [phone] [facility] PA-C Unavailable Ileana Dee Unavailable [phone] Ileana Dee Primary Care Provider [phone] Reason for Referral * Case Request (Routine) - Closed Specialty Diagnoses / Procedures Referred By Contac t Referred To Contact Diversional Therapist Procedures CASE REQUEST LACQUER SIZER: Left Heart Cath Anitra Salazar MD [address] [place] [address] Phone: tel: fax: [facility] Cardiovascular Lab [address] [place] [id number] Phone: tel: fax: Referral ID Status Reason Start Date Expiration Date Visits Re quested Visits Authorized [id number] Closed 02/11/2017 08/09/2017 1 1 Encounter Details Date Type Department Care Team (Late st Contact Info) Description 02/11/2017 Prep for Surgery [facility]) [address] [place] [address] Anitra Salazar MD [address] [place] [address] Social History Tobacco Use Types Packs/Day Years Used Date Smoking Tobacco: Never Smokeless Tobacco: Never Alcohol Use Standard Drinks/Week Comments No 0 (1 standard drink = 0.6 oz pur e alcohol) Comments No Sex and Gender Information Value Date Recorded Sex Assigned at Not on file Legal Sex Female 7:30 PM EST Gender Identity Not on file Sexual Orientation Not on file documented as of this encounter Functional Status * Are you deaf or do you have difficulty hearing? Answer Date of Assessment Author Yes 02/10/2017 11:07 AM Enrique Fernández RN * Are you blind or do you have serious difficulty seeing, even when wearing glasses? Answer Date of Assessment Author No 02/10/2017 11:07 AM Enrique Fernández RN * Do you have serious difficulty walking or climbing stairs? Answer Date of Assessment Author No 02/10/2017 11:07 AM Enrique Fernández RN * Do you have difficulty dressing or bathing? Answer Date of Assessment Author No 02/10/2017 11:07 AM Enrique Fernández RN * Because of a physical, mental, or emotional condition, do you have difficulty doing errands alone such as visiting a doctor's office or shopping? Answer Date of Assessment Author No 02/10/2017 11:07 AM Enrique Fernández RN documented as of this encounter Mental Status * Because of a physical, mental, or emotional condition, do you have serious difficulty concentrating, remembering, or making decisions? Answer Entry Date Author No 02/10/2017 11:07 AM EDEnrique Cabello RN documented in this encounter H&P Notes * Anitra Salazar MD - 02/11/2017 9:04 AM EDT Chief Complaint Patient presents with â€¢ Chest Pain central chest, non radiating HISTORY OF PRESENT ILLNESS : This is a 81 y.o. year old female with CAD status post multivessel bypass surgery, breast cancer status post bilateral mastectomy, hypertension, dyslipidemia who has beenadmitted with chest pain. She underwent a stress test 2 weeks ago which was negative. But she came with chest and throat pain. Her enzyme showed minimally elevated troponin. She did well with medical therapy and remains asymptomatic. Her EKG is also abnormal suggesting anterior ischemia. â€¢ allopurinol 300 mg Oral HS â€¢ aspirin 81 mg Oral Daily â€¢ chlorhexidine 15 mL Mouth/Throat 2 times per day â€¢ clopidogrel bisulfate 75 mg Oral Daily â€¢ isosorbide mononitrate 60 mg Oral Daily â€¢ metFORMIN 500 mg Oral BRK â€¢ metoprolol succinate 25 mg Oral Daily â€¢ pantoprazole sodium 40 mg Oral Daily â€¢ pravastatin sodium 10 mg Oral HS Allergies Allergen Reactions â€¢ Darvocet [Propoxyphene N-Acetaminophen] Nausea Only and Vertigo â€¢ Ciprofloxacin cipro â€¢ Darvon PHYSICAL EXAM: BP 131/61 Pulse 72 Temp 99.1 Â°F (37.3 Â°C) (Oral) Resp 13 Ht 5' (1.524 m) Wt 158 lb 4.6 oz (71.8 kg) SpO2 99% BMI 30.91 kg/m2 Intake/Output Summary (Last 24 hours) at 02/11/17 0905 Last data filed at 02/11/17 0858 Gross per 24 hour Intake 1200 ml Output 0 ml Net 1200 ml General Appearance: Well developed and well-nourished in no apparent distress Head: Normocephalic, PERRLA, EOMâ€™s intact Neck: Carotids 2+ without bruit. No JVD. No lymphadenopathy Chest: Clear to percussion and auscultation with unlabored breathing Heart: Regular rhythm. A systolic murmur noted around the sternal edge. No thrills heaves, rubs or gallops. PMI not displaced Abdomen: Soft without masses, tenderness or organomegaly. Bowel sounds normal. Extremities: Symmetrical. No clubbing, cyanosis, or edema. Peripheral pulses are intact. Neurological: Alert and oriented without focal weakness or pathological movement Skin: Unremarkable clear without rash or recent injury Musculoskeletal: No bony deformities. Spine unremarkable LABS: Recent Labs Lab 02/08/17 2250 WBC 6.3 HGB 11.8* HCT 34.5* PLT 160 Recent Labs Lab 02/08/17 2039 02/11/17 0757 NA 140 144 K 4.3 4.8 CL 103 103 CO2 20 27 BUN 18 15 CREATININE 0.98 0.87 CALCIUM 8.9 9.6 AST 17 -- ALT 13 -- ALKPHOS 57 -- ALBUMIN 4.4 -- No results for input(s): TSH in the last 168 hours. Recent Labs Lab 02/08/17 2250 INR 0.9 PTT 21 Recent Labs Lab 02/09/17 0136 02/09/17 0435 02/10/17 0843 TROPONIN 0.021* <0.010 <0.010 CK -- -- 25 1.07 No results for input(s): BNP in the last 168 hours. Echocardiogram 2d Complete nterpretation Summary A complete two-dimensional transthoracic echocardiogram was performed (2D, M-mode, Doppler and color flow Doppler). The study was technically adequate. There is normal left ventricular wall thickness. Proximal septal thickening is noted. The left ventricular wall motion is normal. Left ventricular systolic function is normal. Ejection Fraction = >55%. There is mild to moderate mitral regurgitation. There is mild tricuspid regurgitation. Mild aortic regurgitation. Left Ventricle The left ventricle is normal in size. There is no thrombus. There is normal left ventricular wall thickness. Proximal septal thickening is noted. Left ventricular systolic function is normal.Ejection Fraction = >55%. The transmitral spectral Doppler flow pattern is suggestive of impaired LV relaxation. The left ventricular wall motion is normal. Right Ventricle The right ventricle is normal in size and function. Atria The left atrial size is normal. Right atrial size is normal. The IVC is normal in size. The interatrial septum is intact with no evidence for an atrial septal defect. Mitral Valve The mitral valve leaflets appear thickened, but open well. There is mild to moderate mitral regurgitation. Tricuspid Valve The tricuspid valve leaflets are thin and pliable. There is mild tricuspid regurgitation. Right ventricular systolic pressure is normal. Aortic Valve The aortic valve is trileaflet. The aortic valve opens well. Sclerotic aortic valve without evidence of stenosis. Mild aortic regurgitation. Pulmonic Valve The pulmonic valve is not well seen, but is grossly normal. Trace pulmonic valvular regurgitation. Great Vessels The aortic root is normal size. Pericardium/Pleural There is no pericardial effusion. Physician: [id number]^TATYANA^ANITRA^^^^^^EPIC_ Echocardiogram Limited Result Date: 02/09/2017 Interpretation Summary 2D Echocardiogram limited, per order. Compared to prior study on 01/13/2017,changes are noted. There is normal left ventricular wall thickness. Proximal septal thickening is noted. Left ventricular systolic function is normal. Ejection Fraction = >55%. There is mild apical wall hypokinesis. Left Ventricle The left ventricle is normal in size. There is no thrombus. Thereis normal left ventricular wall thickness. Proximal septal thickening is noted. Left ventricular systolic function is normal. Ejection Fraction = >55%. There is mild apical wall hypokinesis. RightVentricle The right ventricle is normal in size and function. Atria The left atrial size is normal. Right atrial size is normal. The IVC is normal in size. Great Vessels The aortic root is normal size. Pericardium/Pleural There is no pericardial effusion. Impression: Active Hospital Problems 1. Chest pain syndrome - likely unstable angina. She has enzyme bump along with EKG changes. 2. CAD status post multivessel bypass surgery in the remote past 3. Hypertension - controlled on current therapy 4. Dyslipidemia - on statin Plan: 1. I will add Plavix to her regimen and continue rest of the medicine as is. I discussed the situation with the patient and family. It appears that they prefers to go for cardiac catheterization. I will set [place] [facility] [place] in the [place] for cardiac catheterization and possible Angioplasty if needed. 2. I discussed risk and benefit of the procedure. 3. Will follow the patient with you. This note was dictated with voice recognition software. Similar sounding words can inadvertently get transcribed and not get corrected upon review. Thank you for allowing me to care for your patient today. documented in this encounter Plan of Treatment Upcoming Encounters Date Type Department Care Team (Late st Contact Info) Description 02/09/2025 10:15 AM EDT Office Visit [facility] [address] [place] [address] Andrés Nuñez MD [facility] [place] [address] 03/17/2025 10:45 AM EDT Office Visit [facility] Cardiology [facility]) [address] [place] [address] Felix Ng MD [address] [place] [address] 07/23/2025 12:45 PM EST Office/Infusion [facility] [address] [place] [address] Sathish Asher MD [address] [place] [address] documented as of this encounter Goals Goal Patient Goal Type Associated Problems Recent Progress Patient-Stated? Author Blood Pressure < 140/90 Blood Pressure 159/68(2024 7:06 PM EDT) No HillsideJacy L, HOCKEY INSTRUCTOR Eat more fruits and vegetables Diet No Taylor Jacy L, HOCKEY INSTRUCTOR I will reduce my starch and sugar intake Diet No Taylor Jacy L, HOCKEY INSTRUCTOR Patient will decrease subjective complaints of pain from 5/10 to 0/10 by DC 12 weeks. Exercise On track( 2:41 PM EST) No Fede Hernandez, PT Pt. will restore full right shoulder PROM to within functional limits by DC 12 to 16 weeks. Exercise On track( 2:41 PM EST) No Fede Hernandez, PT Patient will be independent with HEP Exercise On track( 2:41 PM EST) No Fede Hernandez, PT Initiate HEP Exercise On track( 2:41 PM EST) No Fede Hernandez, PT patient will improvefull active range of motion against gravity to 120 by DC. Exercise On track( 013 2:41 PM EST) No Fede Hernandez, PT I will wear proper footwear and check feet regularly Lifestyle No Hillside, Jacy L, HOCKEY INSTRUCTOR I will schedule an eye exam yearly Lifestyle No Taylor, Jacy L, HOCKEY INSTRUCTOR I will monitor my blood sugar as directed Lifestyle No Taylor, Jacy L, HOCKEY INSTRUCTOR I will exercise 6 days a week for 30-45 minutes Lifestyle No Hillside, Jacy L, HOCKEY INSTRUCTOR HEMOGLOBIN A1C < 7.0 Result Component 6.8( 8:10 AM EST) No Taylor, Jacy L, HOCKEY INSTRUCTOR LDL CALC < 100 Result Component 59(06/13/2024 12:52 PM EST) No Hillside, Jacy L, HOCKEY INSTRUCTOR documented as of this encounter Visit Diagnoses Not on filedocumented in this encounter Care Teams Visitor Services Representative Relationship Specialty Start Date End Date Lyric Boyd NP [address] [place] [address] [address] [place], [place] [id number] [phone] PCP - General Internal Medicine 12/12/19 01/20/24 Ileana Dee [address] [place] [address] [address] [place] [address] PCP - General Nurse Practitioner 01/21/24 [place] [address] [place] [address] Consulting Physician Optometry 03/16/15 10/23/18 Patricio Gaona MD [address] [place] [address] [address] [place] [address] Consulting Physician Gastroenterology 06/02/16 08/28/17 Lexi Head, RN Museum Technician 01/15/17 02/15/17 Felix Ng MD [address] [place] [address] Consulting Physician Cardiology 08/29/17 Les Hathaway MD [address] [facility] [address] [place] [address] Consulting Physician Gastroenterology 08/29/17 12/19/17 Wolfgang Herman MD [address] [facility] [address] [place] [address] Consulting Physician Orthopedic Surgery 08/29/17 Kanika Deleon MD [address] [facility] [address] [place] [address] Consulting Physician Gastroenterology 12/20/17 Sathish Asher MD [address] [place] [address] Consulting Physician Oncology 08/02/20 Lizbeth Price PA [facility] [place] [address] Physician Inspector Conveyor Line Physician Inspector Conveyor Line 02/14/21 Vi Cobb PA-C [address] [facility] [address] [place] [address] Physician Inspector Conveyor Line 04/11/23 Ileana Dee [address] [place] [address] [address] [place] [address] Nurse Practitioner 01/21/24 01/21/24 documented as of this encounter
--- OUTSIDE RECORDS SUMMARY | 2024-11-30 11:46 | XMS_ITS | Encounter Summary ---
Author Organization [facility] Address [address] [place] [address] Care Team Providers Care Tooling Mechanic Name Role Phone Ileana Dee SUPERVISORY CLERK Primary Care Provider + Reason for Referral * PROVIDER REFERRAL (Urgent) - Pending Review Specialty Diagnoses / Procedures Referred By Contac t Referred To Contact Orthopedic Surgery Diagnoses Bilateral hip pain Chronic bilateral low back pain without sciatica Rio Torre NP [address] [address] Phone: tel:[phone] fax: [facility] - Orthopedics Spine [address] [address] Phone: tel: fax: Referral ID Status Reason Start Date Expiration Date V isits Requested Visits Authorized [id number] Pending Review 11/13/2024 05/12/2025 1 1 Encounter Details Date Type Department Care Team (Late st Contact Info) Description 11/13/2024 Results Follow-Up [facility] [place] [address] [place] [phone] Rio Torre NP [address] [address] Social History Tobacco Use Types Packs/Day Years Used Date Smoking Tobacco: Never Smokeless Tobacco: Never Alcohol Use Standard Drinks/Week Comments Never 0 (1 standard drink = 0.6 oz pur e alcohol) Social Connection and Isolation Panel [NHANES] A nswer Date Recorded In a typical week, how many times do you talk on the phone with family, friends, or neighbors? Once a week 02/09/20 How often do you get togethe r with friends or relatives? Patient declined 02/08/2023 How often do you attend chur ch or temple services? 1 to 4 times per year 02/08/2023 Do you belong to any clubs o r organizations such as hoahaoism groups, unions, fraternal or athletic groups, or [...] Somewhat hard 02/08/2023 PHQ-2 Answer Date Recorded Patient Health Questionnaire-2 Score 0 11/13/2024 [facility] - Occupational Stress Questionnaire Answer Date Recorded [...] didn't have money to get more. Patient declined 02/2024 PRAPARE - Transportation Answer Date Re [...] place to sleep or slept in a detention (including now)? No 07/23/2023 PHQ-9 Answer Date Recorded Patient Health Questionnaire-9 Score 14 10/01/2023 Alcohol Answer Date Recorded Audit-C Score 0 09/03/2024 Transportation Answer Date Recorded In the past 12 months, has l ack of reliable transportation kept you from medical appointments, meetings, work or from getting things needed for daily living? No 11/13/2024 Living Situation Answer Date Recorded What is your living situation today? I h ave a place to live today, but I am worried about losing it in the future 11/13/[address] you li ve. Do you have problems with any of the following? Choose all that apply: None/None on this list 11/13/2024 Food vital sign Answer Date Recorded Within the past 12 months, y ou worried that your food would run out before you got money to buy more Never true 11/13/2024 Within the past 12 months, t he food you bought just didn't last and you didn't have money to get more. Never true 11/13/2024 Utilities Answer Date Recorded In the past 12 months has th e electric, gas, oil, or water company threatened to shut off services in your home? No 11/13/2024 Rehab Transportation Answer Date Record ed In the past 12 months, has l ack of reliable transportation kept you from medical appointments, meetings, work or from getting things needed for daily living? No 03/04/2024 Comments No Sex and Gender Information Value Date Recorded Sex Assigned at Female 09/01/2023 1:17 PM EST Legal Sex Female 11:08 PM EST Gender Identity Not on file Sexual Orientation Not on file documented as of this encounter Functional Status documented as of this encounter Plan of Treatment Upcoming Encounters Date Type Department Care Team (Late st Contact Info) Description 12/16/2024 8:45 AM EDT Lab [address] [address] 12/17/2024 11:00 AM EDT Office Visit [address] [address] Ileana Dee FNP [address] [place] [address] 03/10/2025 3:30 PM EDT Office Visit [facility] - Nephrology [address] [address] [place] [address] Scheduled Referrals Name Type Priority Associated Diagnoses Order Schedule Ambulatory referral to Orthopedic Surgery Outpatient Referral Routine Bilateral hip pain Chronic bilateral low back pain without sciatica 1 Occurrences starting 11/13/2024 until 12/14/2025 documented as of this encounter Visit Diagnoses Diagnosis Bilateral hip pain- Primary Pain in joint, pelvic region and thigh Chronic bilateral low back pain without sciatica documented in this encounter Additional Health Concerns Assessment Noted Time PHQ-9 Depression Total Score: 14 09/30/2 024 1:25 PM EDT documented as of this encounter Care Teams Tooling Mechanic Relationship Specialty Start Date End Date Ileana Dee FNP (Fax) PCP - General Nurse Practitioner 10/02/24 documented as of this encounter
--- OUTSIDE RECORDS SUMMARY | 2024-11-30 11:46 | XMS_ITS | Referral Summary ---
Author Organization Formerly [facility] Address [address] [place] [address] Care Team Providers Care Hydrographic Surveyor Name Role Phone Ileana DeeP Primary Care Provider + Encounters Date Type Department Care Team Description 11/19/2024 Telephone [facility] [place] [address] [place] [address] Donna Renae RN 11/18/2024 Travel 11/18/2024 9:39 AM EDT - 11/18/2024 11:59 PM EDT Hospital Encounter [facility] - [place]OLOG[place] [address] [place] [address] Stage 3b chronic kidney disease (CMD) Discharge Disposition: Home or Self Care 11/17/[address] [place] [phone] Ileana Dee FNP Advice Only 11/14/[address] [place] [phone] Rio Torre NP diabetic med possible change 11/14/2024 Orders Only [address] [place] [phone] Rio Torre NP 11/14/2024 8:40 AM EDT Consult [facility] [place] [address] [place] [address] Tabitha Kinsey PA-C Acute bilateral low back pain with right-sided sciatica (Primary Dx); Trochanteric bursitis of left hip; Right hip pain 11/13/[address] [phone] Priti Srinivasan PA-C Medication Refill 11/13/2024 Results Follow-Up [address] [phone] Rio Torre NP 11/13/[address] [phone] Ileana Dee FNP New Med Request 11/13/2024 11:15 AM EDT Ancillary Procedure [facility] - RADIOLOGY XR [address] [address] Bilateral hip pain; Chronic bilateral low back pain without sciatica 11/13/2024 11:00 AM EDT Ancillary Procedure [facility] - RADIOLOGY XR [address] [address] Bilateral hip pain; Chronic bilateral low back pain without sciatica 11/13/2024 Travel 11/13/2024 10:40 AM EDT Office Visit [address] [phone] Rio Torre NP Bilateral hip pain (Primary Dx); Chronic bilateral low back pain without sciatica; Type 2 diabetes mellitus with diabetic nephropathy, 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); Stage 4 chronic kidney disease (CMD); Hypomagnesemia; Anemia, unspecified type; Other constipation 11/12/2024 Results Follow-Up [facility] [address] [address] Brissa Monterroso MD 11/12/2024 Travel 11/11/2024 Travel 11/11/2024 2:50 PM EDT Lab [facility] - Laboratory [address] [place] [address] Stage 3b chronic kidney disease (CMD) 11/11/2024 1:00 PM EDT Consult [facility] - Nephrology [address] [address] Brissa Monterroso MD Stage 3b chronic kidney disease (CMD) (Primary Dx); Chronic gout due to renal impairment of multiple sites without tophus; Essential hypertension 11/05/2024 Travel 10/14/[address] [phone] Ileana Dee FNP sugar dropping 10/08/2024 Travel 10/08/2024 11:20 AM EDT Follow-Up [address] [phone] Ileana Dee FNP Hospital discharge follow-up (Primary Dx); Type 2 diabetes mellitus with diabetic nephropathy, unspecified whether intermediate insulin use (CMD); Hyperglycemia 10/07/2024 Travel 10/06/[address] [phone] Ileana Dee FNP Request callback 10/02/[address] [phone] Priti Srinivasan PA-C 09/15/2024 Orders Only [address] [phone] Priti Srinivasan PA-C Type 2 diabetes mellitus with diabetic nephropathy, 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) (Primary Dx) 09/15/[address] [phone] Priti Srinivasan PA-C Request callback 09/11/[address] [phone] Ashlyn Barrow CMA Medication Problem 09/10/2024 Travel 09/10/2024 8:00 AM EST Office Visit [address] [phone] Priti Srinivasan PA-C Encounter for general medical examination (Primary Dx); Essential hypertension; Low TSH level; Stage 3b chronic kidney disease (CMD); Muscle spasm; Primary osteoarthritis involving multiple joints; Gastroesophageal reflux disease without esophagitis; Moderate late onset Alzheimer's dementia without behavioral disturbance, psychotic disturbance, mood disturbance, or anxiety (CMD); Type 2 diabetes mellitus with diabetic nephropathy, unspecified whether intermediate insulin use (CMD); S/P mastectomy, bilateral; Vitamin D deficiency; Screening for lipid disorders 09/08/2024 Travel 09/08/2024 8:00 AM EST Lab [address] [phone] Essential hypertension; Type 2 diabetes mellitus with diabetic nephropathy, 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); Primary osteoarthritis involving multiple joints 09/03/2024 Travel from Last 3 Months Allergies Active Allergy Reactions Criticality Noted Date Comments Ciprofloxacin Diarrhea Low 02/27/2012 cipro Donepezil Other (See Comments) 06/18/2019 confusion Hydrocodone-Acetaminoph en GI Intolerance Medium 11/19/2017 With ALL narcotics Memantine Other (See Comments) 10/01/2023 confusion Propoxyphene GI Intolerance 07/19/2012 Propoxyphene N-Acetaminophen GI Intolerance,Other (See Comments) Medium 07/19/2012 Tramadol Nausea And Vomiting Medium 12/31/2017 Zoledronic Acid Other (See Comments) Medium 12/31/2017 Caused calcium to be drawn out of bones Medications omega 3-eij-znm-fish oil (OMEGA 3) 1,000 mg capsule Take 2 g by mouth Once Daily. 07/19/19 13 Active ondansetron (ZOFRAN) 4 mg tablet 30 tablet 0 03/04/20 20 Active glucose monitoring kit kit One touch ultra (Use to test sugar daily) 1 each 0 08/12/19 22 Active lidocaine (LIDODERM) 5 % patch 30 patch 0 04/03/20 22 Active miscellaneous medical supply (C-Tub) [facility] Rolling walker with seat......... ....(M17.0).. .......deanna acevedo is requesting a size petite 1 each 0 10/21/19 23 Active lactobacillus (Culturelle) Take 1 capsule by mouth Once Daily. 01/09/20 23 Active acetaminophen (TYLENOL) 650 mg ER tablet Take 650 mg by mouth every 8 (eight) hours as needed (pain). 01/13/20 23 Active lancets (DormifyTouch Delica Plus Lancet) 30 gauge [facility] USE TO CHECK BLOOD SUGAR TWICE DAILY 200 each 3 07/10/20 23 Active amLODIPine (NORVASC) 5 mg tablet Take 1 tablet (5 mg total) by mouth daily. 90 tablet 1 10/23/19 24 Active atenoloL (TENORMIN) 25 mg tablet Take 1 tablet (25 mg total) by mouth daily. 90 tablet 1 10/23/19 24 Active diclofenac sodium (VOLTAREN) 1 % gel APPLY 1 GRAM TO AFFECTED AREA(S) TOPICALLY 2 TO 3 TIMES DAILY 300 g 1 10/23/19 24 Active simvastatin (ZOCOR) 10 mg tablet Take 1 tablet (10 mg total) by mouth nightly. 90 tablet 1 10/23/19 24 Active zinc acetate 50 mg (zinc) cap Take by mouth. Active glucose blood (DormifyTouch Ultra Test) test strip Use as instructed 200 strip 3 04/08/20 24 Active pantoprazole (PROTONIX) 40 mg EC tablet TAKE 1 TABLET BY MOUTH DAILY IN THE MORNING BEFORE BREAKFAST 100 tablet 2 06/23/20 24 Active tiZANidine (ZANAFLEX) 2 mg tablet Take 2 mg by mouth 2 (two) times a day as needed. 04/28/20 Active glucosamine-D3 -hyaluronic acid 1,000 mg- 25 mcg-1.65 mg tab Take 1 tablet by mouth 2 (two) times a day. 11/12/19 Active aspirin 81 mg EC tablet Take 1 tablet (81 mg total) by mouth daily. 11/12/19 Active ascorbic acid (Vitamin C) 250 mg tablet Take 1 tablet (250 mg total) by mouth daily. 11/12/19 Active coenzyme Q-10 100 mg capsule Take 1 capsule (100 mg total) by mouth daily. 11/12/19 Active cinnamon bark, bulk, powd Take 1,000 mg by mouth 2 (two) times a day. 11/12/19 Active cholecalcifero l (VITAMIN D3) 1,000 unit (25 mcg) tablet/capsule Take 1 each (1,000 Units total) by mouth daily. 11/12/19 Active glipiZIDE (GLUCOTROL XL) 2.5 mg 24 hr tablet Take 1 tablet (2.5 mg total) by mouth daily. 90 tablet 3 11/14/19 25 Active allopurinoL (ZYLOPRIM) 100 mg tablet Take 0.5 tablets (50 mg total) by mouth every other day. 23 tablet 3 11/14/19 Active sodium bicarbonate 650 mg tablet Take 1 tablet (650 mg total) by mouth 2 (two) times a day. 60 tablet 5 11/14/19 25 Active magnesium oxide 400 mg (241 mg magnesium) tab Take 1 tablet (400 mg total) by mouth 2 (two) times a day. 60 tablet 5 11/14/19 25 Active potassium chloride 20 mEq ER tablet TAKE 1 TABLET BY MOUTH DAILY 100 tablet 2 11/15/19 Active pioglitazone (ACTOS) 45 mg tablet Take 1 tablet (45 mg total) by mouth daily. 90 tablet 1 11/15/19 Active cinnamon bark, bulk, powd Take 1,000 mg by mouth Once Daily. 12/08/19 22 025 Discontinued(Re order) ferrous sulfate 325 mg (65 mg iron) EC tablet 180 tablet 2 04/13/20 22 025 Discontinued potassium chloride 20 mEq ER tablet TAKE 1 TABLET BY MOUTH DAILY 100 tablet 2 03/05/20 24 025 Discontinued ergocalciferol (VITAMIN D2) 1,250 mcg (50,000 unit) capsuleIndicat ions:Vitamin D deficiency Take 1 capsule (50,000 Units total) by mouth once a week. 12 capsule 3 09/10/19 25 025 Discontinued glimepiride (AMARYL) 4 mg tablet Take 1 tablet (4 mg total) by mouth daily with breakfast. 90 tablet 3 10/09/19 025 Discontinued pioglitazone (ACTOS) 45 mg tablet Take 1 tablet (45 mg total) by mouth daily. 90 tablet 3 10/09/19 025 Discontinued allopurinoL (ZYLOPRIM) 100 mg tablet Take 0.5 tablets (50 mg total) by mouth daily. 45 tablet 3 11/14/19 25 025 Discontinued dapagliflozin propanediol (FARXIGA) 5 mg tab tablet Take 1 tablet (5 mg total) by mouth daily. 90 tablet 3 11/14/19 025 Discontinued(Re order) dapagliflozin propanediol (FARXIGA) 5 mg tab tablet Take 1 tablet (5 mg total) by mouth daily. 90 tablet 3 11/14/19 025 Discontinued pioglitazone (ACTOS) 45 mg tablet Take 1 tablet (45 mg total) by mouth daily. 11/15/19 025 Discontinued(Re order) predniSONE (STERAPRED DS) 10 mg (48 tab) DsPk 12 day dose packIndication s:Acute bilateral low back pain with right-sided sciatica,Troch anteric bursitis of left hip Use As Directed On Package. 48 tablet 11/18/19 025 Hospital, Clinic, or Other Facility Administered Medication Ordered Dose Route Frequency Start Date End Date Status lidocaine (XYLOCAINE) 10 mg/mL (1 %) injection 2 mLIndications:Trocha nteric bursitis of left hip,Right hip pain 2 mL Once PRN Procedure 11/14/2024 11/14/2024 Ended lidocaine (XYLOCAINE) 10 mg/mL (1 %) injection 2 mLIndications:Trocha nteric bursitis of left hip,Right hip pain 2 mL Once PRN Procedure 11/14/2024 11/14/2024 Ended triamcinolone acetonide (KENALOG-40) 40 mg/mL injection 40 mgIndications:Trocha nteric bursitis of left hip,Right hip pain 40 mg Once PRN Procedure 11/14/2024 11/14/2024 Ended triamcinolone acetonide (KENALOG-40) 40 mg/mL injection 40 mgIndications:Trocha nteric bursitis of left hip,Right hip pain 40 mg Once PRN Procedure 11/14/2024 11/14/2024 Ended Active Problems Problem Noted Date Diagnosed Date Breast cancer (CMD) 01/11/2024 Overview (01/11/2024): breast cancer - infiltrating ductal Cataract 01/11/2024 Dermatochalasis 01/11/2024 Moderate late onset Alzheime r's dementia without behavioral disturbance, psychotic disturbance, mood disturbance, or anxiety (CMD) 08/16/2023 Stage 3b chronic kidney disease 01/20/2023 Assessment & Plan (11/13/2024 12:48 PM EDT): - Reviewed notes from Dr. Monterroso, nephrology. Reviewed labs and recommendations with patient and her daughter. - Allopurinol 50 mg every other day will be started as recommended by her placement assistant - Refills for allopurinol will be sent to [facility] - Repeat labs will be ordered in a month to monitor kidney function and electrolyte balance H/O total knee replacement, right 01/15/2023 Primary osteoarthritis of right knee 01/11/2023 Type 2 diabetes mellitus with diabetic nephropat hy 10/19/2022 Overview (09/05/2023): 08/04/22 visit - addressed nephropathy query - Stable based upon symptoms and exam. Continue current treatment plan and follow up at least yearly. Assessment & Plan (11/13/2024 12:48 PM EDT): - Current medication regimen includes glimepiride 4 mg, which will be discontinued - Prescription for glipizide 2.5 mg daily will be initiated and sent to [facility] per recommendation from [employer] - Actos will be continued until Farxiga is available, at which point Actos will be discontinued - If Farxiga is not approved or is too expensive, will send RX through [facility] for potential cost savings - Continue to monitor blood sugar at home and notify of any low blood sugar readings Diabetes 10/19/2022 Overview (09/05/2023): 12/07/21 visit - A1C was found to be 8.1% Memory deficit 09/05/2022 Chronic right shoulder pain 08/04/2022 Primary osteoarthritis of knees, bilateral 05/18 Malaise 05/07/2019 Pure hypercholesterolemia 03/18/2019 Gastroesophageal reflux disease without esophagi tis 03/18/2019 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 03/18/2019 S/P CABG x 1 03/18/2019 Chronic gout of multiple sites 03/18/2019 Primary osteoarthritis involving multiple joints 03/18/2019 History of cholecystectomy 03/18/2019 Essential hypertension 03/18/2019 Irritable 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 03/18/2019 Iron deficiency anemia secon mali to inadequate dietary iron intake 03/18/2019 History of right breast cancer 03/18/2019 History of cancer of left breast 03/18/2019 S/P mastectomy, bilateral 03/18/2019 Immunizations Immunization Administration Dates Next Due Influenza, High-dose Seasona l, Quadrivalent, Preservative Free 04/17/2023,04/13/2022,05/02/2021 Influenza, Injectable, Quadr ivalent, Preservative Free 04/13/2020,05/07/2019 Influenza, Unspecified 04/18/2018,2016,05/19/2016,2014,04/24/2014,04/14/2013,05/14/2010 Influenza, high-dose, trivalent, PF 04/10/2024,1 ,05/03/2017 Pfizer SARS-CoV-2 Primary Se maegan 12+ yrs 03/17/2021,02/24/2021 Pneumococcal Conjugate 13-Valent 03/18/2019 Pneumococcal, Unspecified 12/30/2013 TDAP VACCINE (BOOSTRIX,ADACEL) 7Y+ 02/28/2019 Social History Tobacco Use Types Packs/Day Years Used Date Smoking Tobacco: Never Smokeless Tobacco: Never Tobacco Cessation:Counseling Given: Not Answered Alcohol Use Standard Drinks/Week Comments Never 0 [...] 02/08/2023 How often do you attend chur or zoroastrian services? 1 to 4 times per year 02/08/2023 Do you belong to any clubs o r organizations such as congregation groups, unions, fraternal or athletic groups, or [...] Recorded Patient Health Questionnaire-2 Score 0 11/13/2024 [facility] - [facility] Stress [...] place to sleep or slept in a residential (including now)? No 07/23/2023 PHQ-9 Answer Date [...] Sign Reading Time Taken Comments Blood Pressure 145/47 11/14/2024 8:44 AM EDT Pulse 81 11/14/2024 8:44 AM EDT Temperature 36.4 C (97.5 F) 11/11/2024 1:24 PM EDT Respiratory Rate 17 10/23/2023 10:38 AM EDT Oxygen Saturation 99% 11/13/2024 10:03 AM EDT Inhaled Oxygen Concentration - - Weight 66.2 kg (146 lb) 11/14/2024 8:44 AM EDT Height 149.9 cm (4' 11 ) 11/14/2024 8:44 AM EDT Body Mass Index 29.49 11/14/2024 8:44 AM EDT Plan of Treatment Upcoming Encounters Date Type Department Care Team (Late st Contact Info) Description 12/16/2024 8:45 AM EDT Lab [address] [phone] 12/17/2024 11:00 AM EDT Office Visit [address] [phone] Ileana Dee, [address] [address] (Fax) 03/10/2025 3:30 PM EDT Office Visit [facility] [address] [address] [place] [address] Medical Devices Implanted Type Area Reheater Helper Device Identifier Shelf Expiration Date Model / Serial / Lot Baseplate Tibial Triathlon Cocr 2 [place] Knee Cement Total Stabilize Sterile Latex Free Implanted:Qty: 1 on 01/15/2023 by Oc Fatima MD Other Implant Right: Knee [employer] 11/01/2027 5521-B-2 00 / / [id number] Cement Bone Simplex P Tobramycin Full Dose Radiopaque Preblend Sterile Implanted:Qty: 2 on 01/15/2023 by Oc Ftaima MD Other Implant Right: Knee [employer] [id number] 04/14/2024 6197-9-0 01 / / [id number] Component Femoral Triathlon 2 Knee Right Posterior Stabilize Cement Sterile Latex Free Total Knee Arthroplasty Implanted:Qty: 1 on 01/15/2023 by Oc Fatima MD Other Implant Right: Knee [employer] 09/14/2024 5515-F-2 02 / / [id number] Component Patellar Triathlon X3 H9 Mm Od29 Mm Knee Asymmetric Sterile Implanted:Qty: 1 on 01/15/2023 by Oc Fatima MD Other Implant Right: Knee [employer] 11/20/2027 5551-G-2 99-E / / [id number] Peg Fixation Triathlon Knee Femoral Modular Implanted:Qty: 1 on 01/15/2023 by Oc Fatima MD Other Implant Right: Knee [employer] 07/01/2027 5575-X-0 00 / / [id number] Tibial H9 Mm 2 Posterior Stabilize Bearing Triathlon Insert X3 Knee Sterile Latex Free Implanted:Qty: 1 on 01/15/2023 by Oc Fatima MD Other Implant Right: Knee [employer] [id number] 09/11/2027 5532-G-2 09-E / / [id number] Procedures Procedure Name Priority Date/Time Associated Diagnosis Comments US RENAL BILATERAL COMPLETE Routine 11/18/2024 10:19 AM EDT Stage 3b chronic kidney disease (CMD) PA DRAIN/INJECT LARGE JOINT/BURSA Routine 11/14/2024 8:40 AM EDT Trochanteric bursitis of left hip Right hip pain XR SPINE LUMBAR COMPLETE 4+ VIEWS STAT 11/13/2024 11:36 AM EDT Bilateral hip pain Chronic bilateral low back pain without sciatica XR HIPS BILATERAL 2 VW WITH OR WITHOUT PELVIS STAT 11/13/2024 11:36 AM EDT Bilateral hip pain Chronic bilateral low back pain without sciatica URINALYSIS, MICROSCOPIC ONLY Routine 11/11/2024 2:56 PM EDT Stage 3b chronic kidney disease (CMD) CBC WITH DIFFERENTIAL Routine 11/11/2024 2:56 PM EDT Stage 3b chronic kidney disease (CMD) URIC ACID Routine 11/11/2024 2:56 PM EDT Stage 3b chronic kidney disease (CMD) PROTEIN, TOTAL, RANDOM URINE Routine 11/11/2024 2:56 PM EDT Stage 3b chronic kidney disease (CMD) VITAMIN D, 25-HYDROXY Routine 11/11/2024 2:56 PM EDT Stage 3b chronic kidney disease (CMD) PARATHYROID HORMONE (PTH), INTACT Routine 11/11/2024 2:56 PM EDT Stage 3b chronic kidney disease (CMD) CBC WITH DIFFERENTIAL Routine 11/11/2024 2:56 PM EDT Stage 3b chronic kidney disease (CMD) PHOSPHORUS Routine 11/11/2024 2:56 PM EDT Stage 3b chronic kidney disease (CMD) MAGNESIUM Routine 11/11/2024 2:56 PM EDT Stage 3b chronic kidney disease (CMD) URINALYSIS WITH REFLEX TO MICROSCOPIC Routine 11/11/2024 2:56 PM EDT Stage 3b chronic kidney disease (CMD) BASIC METABOLIC PANEL Routine 11/11/2024 2:56 PM EDT Stage 3b chronic kidney disease (CMD) CBC W/O DIFF Routine 09/08/2024 8:10 AM EST Essential hypertension VITAMIN D, 25-HYDROXY Routine 09/08/2024 8:10 AM EST Primary osteoarthritis involving multiple joints HEMOGLOBIN A1C WITH ESTIMATED AVERAGE GLUCOSE Routine 09/08/2024 8:10 AM EST Type 2 diabetes mellitus with diabetic nephropathy, 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 Mild bilateral renal cortical thinning/scarring and increased renal parenchymal echotexture, concerning for medical renal disease. 2. No urolithiasis or hydronephrosis. Narrative 11/18/2024 10:48 AM EDT US RENAL BILATERAL COMPLETE, 11/18/2024 10:19 AM INDICATION: Chronic kidney disease, stage 3b (CMD) \\ N18.32 Chronic kidney disease, stage 3b (CMD) COMPARISON: None. TECHNIQUE: Multi-planar, real-time ultrasonography of the retroperitoneum and urinary tract using grayscale imaging was performed, supplemented by color and/or power Doppler as needed. FINDINGS: . Right Kidney: Length = 10.2 cm. Mild right renal cortical thinning. Overall mildly increased renal parenchymal echotexture. No hydronephrosis or perinephric fluid. No focal mass is identified. . Left Kidney: Length = 10.2 cm. Mild left renal cortical thinning and/or scarring. Mildly increased renal parenchymal echotexture diffusely. No hydronephrosis or perinephric fluid. No focal mass is identified. . Bladder: Normal. . Additional comments: None. Procedure Note Blake Virk MD - 11/18/2024 US RENAL BILATERAL COMPLETE, 11/18/2024 10:19 AM INDICATION: Chronic kidney disease, stage 3b (CMD) \\ N18.32 Chronic kidneydisease, stage 3b (CMD) COMPARISON: None. TECHNIQUE: Multi-planar, real-time ultrasonography of the retroperitoneumand urinary tract using grayscale imaging was performed, supplemented bycolor and/or power Doppler as needed. FINDINGS: . Right Kidney: Length = 10.2 cm. Mild right renal cortical thinning.Overall mildly increased renal parenchymal echotexture. No hydronephrosisor perinephric fluid. No focal mass is identified. . Left Kidney: Length = 10.2 cm. Mild left renal cortical thinning and/orscarring. Mildly increased renal parenchymal echotexture diffusely. Nohydronephrosis or perinephric fluid. No focal mass is identified. . Bladder: Normal. . Additional comments: None. IMPRESSION: 1. Mild bilateral renal cortical thinning/scarring and increased renalparenchymal echotexture, concerning for medical renal disease. 2. No urolithiasis or hydronephrosis. us Brissa Monterroso MD [facility] US PROCEDURES Final Result * PA DRAIN/INJECT LARGE JOINT/BURSA (11/14/2024 8:40 AM EDT) Mary James RN - 11/14/2024 8:40 AM EDT Mary Ambrose RN 11/16/2024 4:18 PM Large joint arthrocentesis: bilateral greater trochanteric bursa on 11/14/2024 8:40 AMMedications (Right): 2 mL lidocaine 10 mg/mL (1 %); 40 mg triamcinolone acetonide 40 mg/mL Medications (Left): 2 mL lidocaine 10 mg/mL (1 %); 40 mg triamcinolone acetonide 40 mg/mL Tabitha Tawnya Kinsey PA-C PROCEDURE/MINOR MARGOT GICAL ORDERABLES Final Result * XR Spine Lumbar Complete 4+ Views (11/13/2024 11:36 AM EDT) Anatomical Region Laterality Modality Spine Digital Radiogra phy 11/13/2024 12:3 5 PM EDT Impressions 11/13/2024 12:37 PM EDT Multilevel degenerative changes as noted above. No acute abnormality seen. Electronically Signed By: Gurjit Casper Jr, M.D. On: 11/13/2024 12 [id number]|2024-11-30 11:46:00|2024-11-30 11:46:00|XMS_ITS|BKG DACHRISON|External Medical Summaries|[id number]|" Continuity of Care Document Created on: November 30, 2024 Mary Isidro : 1935 Sex: Female Author Organization [facility] Address [address] [place] [address] Care Team Providers Care Hydrographic Surveyor Name Role Phone Ileana Dee Primary Care Provider + Encounters Date Type Department Care Team Description 11/19/2024 [facility]phone [facility] [place] [address] [place] [address] Donna Renae RN 11/18/2024 Travel 11/18/2024 9:39 AM EDT - 11/18/2024 11:59 PM EDT Hospital Encounter [facility] - RADIOLOGY [address] [place] [address] Stage 3b chronic kidney disease (CMD) Discharge Disposition: Home or Self Care 11/17/[address] [phone] Ileana Dee FNP Advice Only 11/14/[address] [phone] Rio Torre NP diabetic med possible change 11/14/2024 Orders Only [address] [phone] Rio Torre NP 11/14/2024 8:40 AM EDT Consult [facility] - Orthopedic [place] [address] [place] [address] Tabitha Kinsey PA-C Acute bilateral low back pain with right-sided sciatica (Primary Dx); Trochanteric bursitis of left hip; Right hip pain 11/13/[address] [phone] Priti Srinivasan PA-C Medication Refill 11/13/2024 Results Follow-Up [address] [phone] Rio Torre NP 11/13/[address] [phone] Ileana Dee FNP New Med Request 11/13/2024 11:15 AM EDT Ancillary Procedure [facility] - RADIOLOGY XR [address] [address] Bilateral hip pain; Chronic bilateral low back pain without sciatica 11/13/2024 11:00 AM EDT Ancillary Procedure [facility] - RADIOLOGY XR [address] [id number] Bilateral hip pain; Chronic bilateral low back pain without sciatica 11/13/2024 Travel 11/13/2024 10:40 AM EDT Office Visit [address] [phone] Rio Torre NP Bilateral hip pain (Primary Dx); Chronic bilateral low back pain without sciatica; Type 2 diabetes mellitus with diabetic nephropathy, 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); Stage 4 chronic kidney disease (CMD); Hypomagnesemia; Anemia, unspecified type; Other constipation 11/12/2024 Results Follow-Up [facility] [address] [phone] Brissa Monterroso MD 11/12/2024 Travel 11/11/2024 Travel 11/11/2024 2:50 PM EDT Lab [facility] - Laboratory [address] [place] [id number] Stage 3b chronic kidney disease (CMD) 11/11/2024 1:00 PM EDT Consult [facility] [address] [address] Brissa Monterroso MD Stage 3b chronic kidney disease (CMD) (Primary Dx); Chronic gout due to renal impairment of multiple sites without tophus; Essential hypertension 11/05/2024 Travel 10/14/[address] [phone] Ileana Dee FNP sugar dropping 10/08/2024 Travel 10/08/2024 11:20 AM EDT Follow-Up [address] [phone] Ileana Dee FNP Hospital discharge follow-up (Primary Dx); Type 2 diabetes mellitus with diabetic nephropathy, unspecified whether long term care phlebotomist insulin use (CMD); Hyperglycemia 10/07/2024 Travel 10/06/[address] [phone] Ileana Dee FNP Request callback 10/02/[address] [phone] Priti Srinivasan PA-C 09/15/2024 Orders Only [address] [phone] Priti Srinivasan PA-C Type 2 diabetes mellitus with diabetic nephropathy, 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) (Primary Dx) 09/15/[address] [phone] Priti Srinivasan PA-C Request callback 09/11/[address] [phone] Ashlyn Barrow CMA Medication Problem 09/10/2024 Travel 09/10/2024 8:00 AM EST Office Visit [address] [phone] Priti Srinivasan PA-C Encounter for general medical examination (Primary Dx); Essential hypertension; Low TSH level; Stage 3b chronic kidney disease (CMD); Muscle spasm; Primary osteoarthritis involving multiple joints; Gastroesophageal reflux disease without esophagitis; Moderate late onset Alzheimer's dementia without behavioral disturbance, psychotic disturbance, mood disturbance, or anxiety (CMD); Type 2 diabetes mellitus with diabetic nephropathy, unspecified whether long term care phlebotomist insulin use (CMD); S/P mastectomy, bilateral; Vitamin D deficiency; Screening for lipid disorders 09/08/2024 Travel 09/08/2024 8:00 AM EST Lab [address] [phone] Essential hypertension; Type 2 diabetes mellitus with diabetic nephropathy, 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); Primary osteoarthritis involving multiple joints 09/03/2024 Travel 09/01/2024 Travel 08/14/2024 Orders Only [address] [phone] Ileana Dee, [facility] 08/14/[address] [phone] Ileana Dee, [employer] 07/28/[address] [phone] Ileana Dee [facility] New Med Request 07/28/[address] [phone] Ileana Dee FNP 07/22/2024 Orders Only [address] [phone] Priti Srinivasan PA-C Stage 3b chronic kidney disease (CMD) (Primary Dx) 07/21/2024 Results Follow-Up [address] [phone] Priti Srinivasan PA-C 07/18/2024 Orders Only [address] [phone] Rio Torre NP Stage 3b chronic kidney disease (CMD) (Primary Dx) 07/18/2024 Travel 07/18/2024 10:30 AM EST Lab [address] [phone] Low TSH level; Stage 3b chronic kidney disease (CMD) 07/17/2024 Travel 07/15/2024 Orders Only [address] [phone] Priti Srinivasan PA-C Low TSH level (Primary Dx) 07/14/[address] [phone] Lyric Boyd, CORRINE Medication Refill 07/14/[address] [phone] Ileana Dee FNP 06/21/[address] [phone] Priti Srinivasan PA-C Medication Refill 05/13/[address] [phone] Edu Figueroa MD 05/06/2024 Travel 05/06/2024 11:15 AM EDT Consult [address] [phone] Edu Figueroa MD Labial lesion (Primary Dx) 05/01/2024 Travel 05/01/2024 11:30 AM EDT Office Visit [address] [phone] Rio Torre NP Polyp of labia (Primary Dx); Dysuria 04/28/2024 2:45 PM EDT Ancillary Procedure [facility] - RADIOLOGY XR [address] [phone] Neck pain 04/28/2024 2:30 PM EDT Ancillary Procedure [facility] - RADIOLOGY XR [address] [phone] Chronic thoracic back pain, unspecified back pain laterality 04/28/2024 Travel 04/28/2024 1:30 PM EDT Office Visit [address] [phone] Priti Srinivasan PA-C Neck pain (Primary Dx); Chronic thoracic back pain, unspecified back pain laterality; Muscle spasm 04/10/2024 Travel 04/10/2024 9:30 AM EDT Immunization [address] [phone] Need for vaccination (Primary Dx) 04/08/[address] [phone] Ileana Dee FNP Medication Refill 04/07/[address] [phone] Priti Srinivasan PA-C Medication Refill 04/05/[address] [phone] Ileana Dee FNP Medication Refill 03/05/[address] [phone] Priti Srinivasan PA-C 03/04/[address] [phone] Lyric Boyd NP Medication Refill 03/04/2024 Travel 03/04/2024 8:00 AM EDT Office Visit [address] [phone] Priti Srinivasan PA-C Encounter for Medicare annual wellness exam (Primary Dx); Type 2 diabetes mellitus with diabetic nephropathy, 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); Essential hypertension; Moderate late onset Alzheimer's dementia without behavioral disturbance, psychotic disturbance, mood disturbance, or anxiety (CMD); Pure hypercholesterolemia; Gastroesophageal reflux disease without esophagitis; Primary osteoarthritis involving multiple joints; History of cancer of left breast; Iron 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; Dementia, unspecified dementia severity, unspecified dementia type, unspecified whether behavioral, psychotic, or mood disturbance or anxiety (CMD); Stage 3b chronic kidney disease (HCC); 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) 02/26/2024 Travel 02/10/[address] [phone] Ileana Dee FNP Medication Refill 01/15/[address] [phone] Pcp, No Medication Refill 01/11/2024 Travel 01/11/2024 9:20 AM EDT Office Visit [address] [phone] Park Mercado FNP Acute cystitis without hematuria (Primary Dx); Left flank pain 01/11/[address] [phone] Lyric Boyd NP Medication Refill 10/31/[address] [phone] Lyric Boyd NP Medication Refill 10/30/2023 Orders Only [address] [phone] Lyric Boyd NP Cystitis (Primary Dx) 10/30/[address] [phone] Lyric Boyd NP Urinary Problem 10/23/2023 Orders Only [address] [phone] Melba Golden CMA 10/23/2023 Travel 10/23/2023 10:20 AM EDT Office Visit [address] [phone] Lyric Boyd NP Type 2 diabetes mellitus with diabetic nephropathy, 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) (Primary Dx); Gastroesophageal reflux disease without esophagitis; Type 2 diabetes mellitus without complication, 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); Essential hypertension; Moderate late onset Alzheimer's dementia without behavioral disturbance, psychotic disturbance, mood disturbance, or anxiety (CMD); Pure hypercholesterolemia; Dysuria 10/16/2023 Travel 10/10/2023 10:15 AM EDT Ancillary Procedure [facility] [place] [address] [place] [address] 10/10/2023 Travel 10/10/2023 10:15 AM EDT Office Visit [facility] [place] [address] [place] [address] Oc Fatima MD H/O total knee replacement, right (Primary Dx); Primary osteoarthritis of knees, bilateral; Primary osteoarthritis of left knee 10/03/2023 Travel 10/01/2023 Travel 10/01/2023 1:15 PM EDT Consult [facility] [address] [phone] Darlene Lama MD Moderate late onset Alzheimer's dementia with agitation (CMD) (Primary Dx) 09/30/2023 Travel 09/21/2023 Refill [facility] Medicine [address] [place] [phone] Lyric Boyd, CORRINE Medication Refill 08/16/2023 Conversion Orders Only [facility] [address] [place] [phone] Lyric Boyd, CORRINE 07/26/2023 Conversion Orders Only [facility] [address] [place] [phone] Lyric Boyd, CORRINE 07/20/2023 Conversion Orders Only [facility] [address] [place] [phone] Lyric Boyd, CORRINE 07/10/2023 Conversion Orders Only [facility] [address] [place] [phone] Lyric Boyd, CORRINE 07/02/2023 Conversion Orders Only [facility] [address] [place] [phone] Lyric Boyd, CORRINE 06/20/2023 Conversion Orders Only [facility] HISTORICAL DATA CONVERSIONS [address] [place] [address] 04/09/2023 Conversion Orders Only [facility] Medicine [address] [place] [phone] Lyric Boyd, CORRINE 02/02/2023 Conversion Orders Only [facility] Medicine [address] [place] [phone] Lyric Boyd, CORRINE 01/12/2023 Conversion Orders Only [facility] HISTORICAL DATA CONVERSIONS [address] [place] [address] 01/08/2023 Conversion Orders Only [facility] HISTORICAL DATA CONVERSIONS [address] [place] [address] 10/16/2022 Conversion Orders Only [facility] Medicine [address] [place] [phone] Lyric Boyd, CORRINE 04/13/2022 Conversion Orders Only [facility] Medicine [address] [place] [phone] Lyric Boyd, CORRINE 04/03/2022 Conversion Orders Only [facility] Medicine [address] [place] [phone] Lyric Boyd, CORRINE 12/07/2021 Conversion Orders Only [facility] HISTORICAL DATA CONVERSIONS [address] [place] [address] 01/21/2021 Conversion Orders Only [facility] HISTORICAL DATA CONVERSIONS [address] [place] [address] 03/04/2020 Conversion Orders Only [facility] Medicine [address] [place] [phone] Lyric Boyd, CORRINE 06/18/2019 Conversion Orders Only [facility] Medicine [address] [place] [phone] Lyric Boyd, CORRINE 03/16/2016 Conversion Encounter [facility] [address] 07/19/2012 Conversion Orders Only [facility] HISTORICAL DATA CONVERSIONS [address] [place] [address] Allergies Active Allergy Reactions Criticality Noted Date Comments Propoxyphene N-Acetaminophen GI Intolerance,Other (See Comments) Medium 07/19/2012 Hydrocodone-Acetaminoph en GI Intolerance Medium 11/19/2017 With ALL narcotics Zoledronic Acid Other (See Comments) Medium 12/31/2017 Caused calcium to be drawn out of bones Donepezil Other (See Comments) 06/18/2019 confusion Propoxyphene GI Intolerance 07/19/2012 Ciprofloxacin Diarrhea Low 02/27/2012 cipro Memantine Other (See Comments) 10/01/2023 confusion Tramadol Nausea And Vomiting Medium 12/31/2017 Medications omega 0-iom-mqc-fish oil (OMEGA 3) 1,000 mg capsule Take 2 g by mouth Once Daily. 07/19/19 13 Active ondansetron (ZOFRAN) 4 mg tablet 30 tablet 0 03/04/20 20 Active glucose monitoring kit kit One touch ultra (Use to test sugar daily) 1 each 0 08/12/19 22 Active lidocaine (LIDODERM) 5 % patch 30 patch 0 04/03/20 22 Active miscellaneous medical supply (C-Tub) [facility] Rolling walker with seat......... ....(M17.0).. .......deanna acevedo is requesting a size petite 1 each 0 10/21/19 23 Active lactobacillus (Culturelle) Take 1 capsule by mouth Once Daily. 01/09/20 23 Active acetaminophen (TYLENOL) 650 mg ER tablet Take 650 mg by mouth every 8 (eight) hours as needed (pain). 01/13/20 23 Active lancets (DormifyTouch Delica Plus Lancet) 30 gauge [facility] USE TO CHECK BLOOD SUGAR TWICE DAILY 200 each 3 07/10/20 23 Active amLODIPine (NORVASC) 5 mg tablet Take 1 tablet (5 mg total) by mouth daily. 90 tablet 1 10/23/19 24 Active atenoloL (TENORMIN) 25 mg tablet Take 1 tablet (25 mg total) by mouth daily. 90 tablet 1 10/23/19 24 Active diclofenac sodium (VOLTAREN) 1 % gel APPLY 1 GRAM TO AFFECTED AREA(S) TOPICALLY 2 TO 3 TIMES DAILY 300 g 1 10/23/19 24 Active simvastatin (ZOCOR) 10 mg tablet Take 1 tablet (10 mg total) by mouth nightly. 90 tablet 1 10/23/19 24 Active zinc acetate 50 mg (zinc) cap Take by mouth. Active glucose blood (DormifyTouch Ultra Test) test strip Use as instructed 200 strip 3 04/08/20 24 Active pantoprazole (PROTONIX) 40 mg EC tablet TAKE 1 TABLET BY MOUTH DAILY IN THE MORNING BEFORE BREAKFAST 100 tablet 2 06/23/20 24 Active tiZANidine (ZANAFLEX) 2 mg tablet Take 2 mg by mouth 2 (two) times a day as needed. 04/28/20 Active glucosamine-D3 -hyaluronic acid 1,000 mg- 25 mcg-1.65 mg tab Take 1 tablet by mouth 2 (two) times a day. 11/12/19 Active aspirin 81 mg EC tablet Take 1 tablet (81 mg total) by mouth daily. 11/12/19 Active ascorbic acid (Vitamin C) 250 mg tablet Take 1 tablet (250 mg total) by mouth daily. 11/12/19 Active coenzyme Q-10 100 mg capsule Take 1 capsule (100 mg total) by mouth daily. 11/12/19 Active cinnamon bark, bulk, powd Take 1,000 mg by mouth 2 (two) times a day. 11/12/19 Active cholecalcifero l (VITAMIN D3) 1,000 unit (25 mcg) tablet/capsule Take 1 each (1,000 Units total) by mouth daily. 11/12/19 Active glipiZIDE (GLUCOTROL XL) 2.5 mg 24 hr tablet Take 1 tablet (2.5 mg total) by mouth daily. 90 tablet 3 11/14/19 25 Active allopurinoL (ZYLOPRIM) 100 mg tablet Take 0.5 tablets (50 mg total) by mouth every other day. 23 tablet 3 11/14/19 Active sodium bicarbonate 650 mg tablet Take 1 tablet (650 mg total) by mouth 2 (two) times a day. 60 tablet 5 11/14/19 25 Active magnesium oxide 400 mg (241 mg magnesium) tab Take 1 tablet (400 mg total) by mouth 2 (two) times a day. 60 tablet 5 11/14/19 25 Active potassium chloride 20 mEq ER tablet TAKE 1 TABLET BY MOUTH DAILY 100 tablet 2 11/15/19 25 Active pioglitazone (ACTOS) 45 mg tablet Take 1 tablet (45 mg total) by mouth daily. 90 tablet 1 11/15/19 Active cinnamon bark, bulk, powd Take 1,000 mg by mouth Once Daily. 12/08/19 Discontinued(Re order) ferrous sulfate 325 mg (65 mg iron) EC tablet 180 tablet 2 04/13/20 22 Discontinued potassium chloride 20 mEq ER tablet TAKE 1 TABLET BY MOUTH DAILY 100 tablet 2 03/05/20 025 Discontinued ergocalciferol (VITAMIN D2) 1,250 mcg (50,000 unit) capsuleIndicat ions:Vitamin D deficiency Take 1 capsule (50,000 Units total) by mouth once a week. 12 capsule 3 09/10/19 25 025 Discontinued glimepiride (AMARYL) 4 mg tablet Take 1 tablet (4 mg total) by mouth daily with breakfast. 90 tablet 3 10/09/19 025 Discontinued pioglitazone (ACTOS) 45 mg tablet Take 1 tablet (45 mg total) by mouth daily. 90 tablet 3 10/09/19 025 Discontinued allopurinoL (ZYLOPRIM) 100 mg tablet Take 0.5 tablets (50 mg total) by mouth daily. 45 tablet 3 11/14/19 025 Discontinued dapagliflozin propanediol (FARXIGA) 5 mg tab tablet Take 1 tablet (5 mg total) by mouth daily. 90 tablet 3 11/14/19 025 Discontinued(Re order) dapagliflozin propanediol (FARXIGA) 5 mg tab tablet Take 1 tablet (5 mg total) by mouth daily. 90 tablet 3 11/14/19 025 Discontinued pioglitazone (ACTOS) 45 mg tablet Take 1 tablet (45 mg total) by mouth daily. 11/15/19 025 Discontinued(Re order) predniSONE (STERAPRED DS) 10 mg (48 tab) DsPk 12 day dose packIndication s:Acute bilateral low back pain with right-sided sciatica,Troch anteric bursitis of left hip Use As Directed On Package. 48 tablet 11/18/19 025 Hospital, Clinic, or Other Facility Administered Medication Ordered Dose Route Frequency Start Date End Date Status lidocaine (XYLOCAINE) 10 mg/mL (1 %) injection 2 mLIndications:Trocha nteric bursitis of left hip,Right hip pain 2 mL Once PRN Procedure 11/14/2024 11/14/2024 Ended lidocaine (XYLOCAINE) 10 mg/mL (1 %) injection 2 mLIndications:Trocha nteric bursitis of left hip,Right hip pain 2 mL Once PRN Procedure 11/14/2024 11/14/2024 Ended triamcinolone acetonide (KENALOG-40) 40 mg/mL injection 40 mgIndications:Trocha nteric bursitis of left hip,Right hip pain 40 mg Once PRN Procedure 11/14/2024 11/14/2024 Ended triamcinolone acetonide (KENALOG-40) 40 mg/mL injection 40 mgIndications:Trocha nteric bursitis of left hip,Right hip pain 40 mg Once PRN Procedure 11/14/2024 11/14/2024 Ended Active Problems Problem Noted Date Diagnosed Date Breast cancer (CMD) 01/11/2024 Overview (01/11/2024): breast cancer - infiltrating ductal Cataract 01/11/2024 Dermatochalasis 01/11/2024 Moderate late onset Alzheime r's dementia without behavioral disturbance, psychotic disturbance, mood disturbance, or anxiety (CMD) 08/16/2023 Stage 3b chronic kidney disease 01/20/2023 Assessment & Plan (11/13/2024 12:48 PM EDT): - Reviewed notes from Dr. Monterroso, nephrology. Reviewed labs and recommendations with patient and her daughter. - Allopurinol 50 mg every other day will be started as recommended by her placement assistant - Refills for allopurinol will be sent to [facility] - Repeat labs will be ordered in a month to monitor kidney function and electrolyte balance H/O total knee replacement, right 01/15/2023 Primary osteoarthritis of right knee 01/11/2023 Type 2 diabetes mellitus with diabetic nephropat hy 10/19/2022 Overview (09/05/2023): 08/04/22 visit - addressed nephropathy query - Stable based upon symptoms and exam. Continue current treatment plan and follow up at least yearly. Assessment & Plan (11/13/2024 12:48 PM EDT): - Current medication regimen includes glimepiride 4 mg, which will be discontinued - Prescription for glipizide 2.5 mg daily will be initiated and sent to [facility] per recommendation from [employer] - Actos will be continued until Farxiga is available, at which point Actos will be discontinued - If Farxiga is not approved or is too expensive, will send RX through [facility] for potential cost savings - Continue to monitor blood sugar at home and notify of any low blood sugar readings Diabetes 10/19/2022 Overview (09/05/2023): 12/07/21 visit - A1C was found to be 8.1% Memory deficit 09/05/2022 Chronic right shoulder pain 08/04/2022 Primary osteoarthritis of knees, bilateral 05/18 Malaise 05/07/2019 Pure hypercholesterolemia 03/18/2019 Gastroesophageal reflux disease without esophagi tis 03/18/2019 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 03/18/2019 S/P CABG x 1 03/18/2019 Chronic gout of multiple sites 03/18/2019 Primary osteoarthritis involving multiple joints 03/18/2019 History of cholecystectomy 03/18/2019 Essential hypertension 03/18/2019 Irritable 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 03/18/2019 Iron deficiency anemia secon mali to inadequate dietary iron intake 03/18/2019 History of right breast cancer 03/18/2019 History of cancer of left breast 03/18/2019 S/P mastectomy, bilateral 03/18/2019 Immunizations Immunization Administration Dates Next Due Influenza, High-dose Seasona l, Quadrivalent, Preservative Free 04/17/2023,04/13/2022,05/02/2021 Influenza, Injectable, Quadr ivalent, Preservative Free 04/13/2020,05/07/2019 Influenza, Unspecified 04/18/2018,2016,05/19/2016,2014,04/24/2014,04/14/2013,05/14/2010 Influenza, high-dose, trivalent, PF 04/10/2024,1 ,05/03/2017 Pfizer SARS-CoV-2 Primary Se maegan 12+ yrs 03/17/2021,02/24/2021 Pneumococcal Conjugate 13-Valent 03/18/2019 Pneumococcal, Unspecified 12/30/2013 TDAP VACCINE (BOOSTRIX,ADACEL) 7Y+ 02/28/2019 Family History Medical History Relation Comments Seizures Daughter Cancer Father Heart disease Father Dementia Mother Diabetes Mother Relation Status Comments Daughter Alive Father Mother Social History Smoking Status as of 11/30/2024 Tobacco Use Types Packs/Day Years Used Date Smoking Tobacco: Never Assessed Social Connection and Isolation Panel [NHANES] A nswer Date Recorded In a typical week, how many times do you talk on the phone with family, friends, or neighbors? Once a week 02/09/20 23
--- OUTSIDE RECORDS SUMMARY | 2024-11-30 11:47 | XMS_ITS | Encounter Summary ---
Author Organization Psychiatric hospital visits prior to 09/15/[place] [address] Care Team Providers Care Director Of Acquisition Marketing Name Role Phone Donovan DANIELS MD, Akira Quan Unavailable [phone] Lyric Boyd NP Primary Care Provider [phone] Reason for Visit * Reason Onset Date Comments [facility] 11/13/2022 Encounter Details Date Type Department Care Team Description 11/13/2022 Telephone Orthopaedics - [place] [address] [place] [address] DavidhiOc connors MD [address] [place] [address] [facility] Social History Tobacco Use Types Packs/Day Years Used Date Smoking Tobacco: Never Smokeless Tobacco: Never Alcohol Use Standard Drinks/Week Comments No 0 (1 standard drink = 0.6 oz pur e alcohol) PHQ-2 Answer Date Recorded [facility] PHQ2 SCORE 0 10/24/2022 Sex and Gender Information Value Date Recorded Sex Assigned at Not on file Gender Identity Not on file Sexual Orientation Not on file COVID-19 Exposure Response Date Recorded In the last 10 days, have yo u been in contact with someone who was confirmed or suspected to have Coronavirus/COVID-19? No / Unsure 10/31/2022 1:33 PM EDT documented as of this encounter Miscellaneous Notes * Telephone Encounter - Dyana Jones - 11/14/2022 1:29 PM EDT Patient daughter Sobia attempting to get in touch with Tati again and requesting a call back to getsurgery set up. Transferred call to [facility]. Please advise. * Telephone Encounter - Yasmin Vargas - 11/13/2022 3:00 PM EDT Sobia is calling requesting to speak with the clinic to schedule surgery with Dr Fatima. Sobia states that she called [facility] Sunday and today at lunch. Please call documented in this encounter Plan of Treatment Not on file documented as of this encounter Visit Diagnoses Not on filedocumented in this encounter Care Teams Director Of Acquisition Marketing Relationship Specialty Start Date End Date Lyric Boyd NP [address] [place] [id number] PCP - General Nurse Practitioner 03/06/19 Akira Man II, MD [address] [place] [id number] Referring Provider Surgery 07/19/12 documented as of this encounter
--- OUTSIDE RECORDS SUMMARY | 2024-11-30 11:47 | XMS_ITS | Encounter Summary ---
Author Organization [facility] Address [address] [place] [address] Care Team Providers Care Marketing Technologist Name Role Phone Ileana Dee [facility] Primary Care Provider + Reason for Visit * Reason Comments Medication Refill Encounter Details Date Type Department Care Team (Late st Contact Info) Description 04/05/2024 Refill [facility] - Primary Care [place] [address] [place] [address] [place] [address] Ileana Dee [facility] [address] [place] [address] [place] [phone] Medication Refill Social History Tobacco Use Types Packs/Day Years [...] often do you attend chur ch or restoration services? 1 to 4 times per year 02/08/2023 Do you belong to any clubs o r organizations such as nondenominational groups, unions, fraternal or athletic groups, or [...] Date Recorded Patient Health Questionnaire-2 Score 0 03/04/2024 [facility] - Occupational [...] place to sleep or slept in a long-term (including now)? No 07/23/2023 PHQ-9 Answer Date Recorded Patient Health Questionnaire-9 Score 14 10/01/2023 Alcohol Answer Date Recorded Audit-C Score 0 03/04/2024 Transportation Answer Date Recorded In the past 12 months, has l ack of reliable transportation kept you from medical appointments, meetings, work or from getting things needed for daily living? No 03/04/2024 Living Situation Answer Date Recorded What is your living situation today? I have a terrence place to live 03/04/[address] you li ve. Do you have problems with any of the following? Choose all that apply: None/None on this list 03/04/2024 Food vital sign Answer Date Recorded Within the past 12 months, y ou worried that your food would run out before you got money to buy more Never true 03/04/2024 Within the past 12 months, t he food you bought just didn't last and you didn't have money to get more. Never true 03/04/2024 Utilities Answer Date Recorded In the past 12 months has th e electric, gas, oil, or water company threatened to shut off services in your home? No 03/04/2024 Rehab Transportation Answer Date Record ed In the past 12 months, has l ack of reliable transportation kept you from medical appointments, meetings, work or from getting things needed for daily living? No 03/04/2024 Comments Unknown Sex and Gender Information Value Date Recorded Sex Assigned at Female 09/01/2023 1:17 PM EST Legal Sex Female 11:08 PM EST Gender Identity Not on file Sexual Orientation Not on file documented as of this encounter Plan of Treatment Upcoming Encounters Date Type Department Care Team (Late st Contact Info) Description 12/16/2024 8:45 AM EDT Lab [address] [address] 12/17/2024 11:00 AM EDT Office Visit [address] [address] Ileana Dee [address] [address] 03/10/2025 3:30 PM EDT Office Visit [facility] Nephrology [address] [address] Brissa Monterroso [place] [address] documented as of this encounter Visit Diagnoses Not on filedocumented in this encounter Additional Health Concerns Assessment Noted Time PHQ-9 Depression Total Score: 14 09/30/ 024 1:25 PM EDT documented as of this encounter Care Teams Marketing Technologist Relationship Specialty Start Date End Date Ileana Dee FNP PCP - General Nurse Practitioner 10/02/24 documented as of this encounter
--- OUTSIDE RECORDS SUMMARY | 2024-11-30 11:48 | XMS_ITS | Encounter Summary ---
Author Organization [facility] Address [address] [place] [address] Care Team Providers Care Automatic Winder Operator Name Role Phone Ileana Dee [facility] Primary Care Provider + Encounter Details Date Type Department Care Team (Late st Contact Info) Description 04/03/2022 Conversion Orders Only [facility] Internal Medicine [address] [place] [address] Lyric Boyd, CORRINE [address] [address] Social History Tobacco Use Types Packs/Day Years Used Date Smoking Tobacco: Never Assessed Comments Unknown Sex and Gender Information Value Date Recorded Sex Assigned at Female 09/01/2023 1:17 PM EST Legal Sex Female 11:08 PM EST Gender Identity Not on file Sexual Orientation Not on file documented as of this encounter Plan of Treatment Upcoming Encounters Date Type Department Care Team (Late st Contact Info) Description 12/16/2024 8:45 AM EDT Lab [address] [phone]/17/2024 11:00 AM EDT Office Visit [address] [address] Ileana Dee FNP [address] [place] [phone] (Fax) 03/10/2025 3:30 PM EDT [facility] [address] [address] [place] [address] documented as of this encounter Visit Diagnoses Not on filedocumented in this encounter Care Teams Automatic Winder Operator Relationship Specialty Start Date End Date Ileana Dee FNP PCP - General Nurse Practitioner 10/02/24 documented as of this encounter
--- OUTSIDE RECORDS SUMMARY | 2024-11-30 11:48 | XMS_ITS | Encounter Summary ---
Author Organization [facility] Address [address] [place] [address] Care Team Providers Care Restaurant Delivery Driver Name Role Phone Ileana Dee RF DESIGN ENGINEER Primary Care Provider + Encounter Details Date Type Department Care Team (Late st Contact Info) Description 06/18/2019 Conversion Orders Only [facility] Internal Medicine [address] [place] [address] Lyric Boyd, CORRINE [address] [address] Social History Tobacco Use Types Packs/Day Years [...] Info) Description 12/16/2024 8:45 AM EDT Lab [address] [address] 12/17/2024 11:00 AM EDT Office Visit [address] [address] Ileana Dee FNP [address] [place] [phone] (Fax) 03/10/2025 3:30 PM EDT Office Visit [facility] Nephrology [address] [address] [place] [address] documented as of this encounter Visit Diagnoses Not on filedocumented in this encounter Care Teams Restaurant Delivery Driver Relationship Specialty Start Date End Date Ileana Dee FNP PCP - General Nurse Practitioner 10/02/24 documented as of this encounter
--- OUTSIDE RECORDS SUMMARY | 2024-11-30 11:48 | XMS_ITS ---
Author Organization [facility] Care Team Providers Care Career Discovery Teacher Name Role Phone Lizbeth Delgado Unavailable Unavailable Jak Carson V Unavailable Unavailable Allergies and adverse reactions Code CodeSystem Substance Reaction Severity StartDate Concern Status Lactose Intolerant Unknown 10/16/2017 ac tive Darvon Unknown 10/09/2017 active Darvocet Nausea (code- 521791463, SNOMED CT) Unknown 10/09/2017 active 2551 RXNORM Ciprofloxacin Unknown 10/09/2017 active Care Team Name Role Address Phone Organization Dates Lizbeth Delgado [address] [place], [address], [place] (Office): : (Pager): [facility] 10/10/2017 - 10/30/2017 Jak Carson [address] [place] [address], [phone], [place] (Office): : [facility] 10/10/2017 - 10/30/2017 Immunizations Immunization Status Vaccine Details Vaccine Code CodeSystem Date Notes Hepatitis B cancelled hepatitis B vaccine, adult dosage 43 CVX created date: 10/15/2017 consent date: 10/15/2017 Pneumovax Dose 1 normal pneumococcal polysaccharide vaccine, 23 valent 33 CVX created date: 10/15/2017 consent date: 10/15/2017 2017 Tetanus cancelled tetanus toxoid, unspecified formulation 112 CVX created date: 10/15/2017 consent date: 10/15/2017 TB 2 Step Mantoux Skin Test completed tuberculin skin test; purified protein derivative solution, intradermal Given 0.1 ml Left Forearm intradermally Step 1 of Multi-step with next step required 96 CVX created date: 10/15/2017 consent date: 10/15/2017 administere d date: 10/20/2017 Influenza (vial) cancelled Influenza, spli t virus, trivalent, injectable, contains preservative 141 CVX created date: 10/15/2017 consent date: 10/15/2017 Mental Status Section Date Assessment Total Score Description 10/30/2017 BIMS 15 cognitively int act CAM 0 No delirium ind icated PHQ-9 04 minimal depress ion 10/16/2017 BIMS 15 cognitively int act CAM 0 No delirium ind icated PHQ-9 06 mild depression Problems Problem # Description Date of onset Resolved Date Code CodeSystem Concern Status 1 MUSCLE WEAKNESS (GENERALIZED) 10/12/[address] active 2 UNSPECIFIED ABNORMALITIES OF GAIT AND MOBILITY 10/12/[address] active 3 UNSPECIFIED LACK OF COORDINATION 10/12/[address] active 4 TYPE 2 DIABETES MELLITUS WITHOUT COMPLICATIONS 10/11/[address] active 5 ACQUIRED ABSENCE OF BILATERAL BREASTS AND NIPPLES 10/10/[address] active 6 ATHEROSCLEROTIC HEART DISEASE OF [place] CORONARY ARTERY WITHOUT ANGINA PECTORIS 10/10/[address] active 7 BILATERAL PRIMARY OSTEOARTHRITIS OF KNEE 10/10/[address] active 8 CHRONIC KIDNEY DISEASE, STAGE 3 (MODERATE) 10/10/[address] active 9 DISPLACED INTERTROCHANTERIC FRACTURE OF LEFT FEMUR, SUBSEQUENT ENCOUNTER FOR CLOSED FRACTURE WITH ROUTINE HEALING 10/10/[address] active 10 DYSPHAGIA, UNSPECIFIED 10/10/[address] active 11 ENCOUNTER FOR OTHER SPECIFIED AFTERCARE 10/10/[address] active 12 GASTRO-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 10/10/[address] active 13 GOUT, UNSPECIFIED 10/10/[address] active 14 HYPERLIPIDEMIA, UNSPECIFIED 10/10/[address] active 15 HYPERTENSIVE CHRONIC KIDNEY DISEASE WITH STAGE 1 THROUGH STAGE 4 CHRONIC KIDNEY DISEASE, OR UNSPECIFIED CHRONIC KIDNEY DISEASE 10/10/[address] active 16 IRON DEFICIENCY ANEMIA, UNSPECIFIED 10/10/[address] active 17 OBESITY, UNSPECIFIED 10/10/[address] active 18 OTHER SPECIFIED DISORDERS OF BONE DENSITY AND STRUCTURE, UNSPECIFIED SITE 10/10/[address] active 19 PERSONAL HISTORY OF MALIGNANT NEOPLASM OF BREAST 10/10/[address] active 20 PRESENCE OF AORTOCORONARY BYPASS GRAFT 10/10/[address] active 21 TYPICAL ATRIAL FLUTTER 10/10/[address] active 22 UNSPECIFIED OSTEOARTHRITIS, UNSPECIFIED SITE 10/10/[address] active 23 VITAMIN D DEFICIENCY, UNSPECIFIED 10/10/[address] active Reason for Referral No Reasons for Referral Entered Social History Social History Observation Description Start Date End Date Code Code System Current Smoking Status Tobacco smoking consumption unknown 143230495 SNOMED CT Sex Assigned At Female 1935 83891-3 [facility] Gender Identity Vital Signs Code Code System Vitals Name Values and Units Timing Information 62483-5 [facility] Pain Level Value=0.0 10/30/2017 2339-0 [facility] Blood Sugar Xlglm=246.0 Units=mg/dL 10/30/2017 9279-1 [facility] Respiratory Rate Value=20.0 Units=/m in 10/29/2017 8462-4 [facility] Blood Pressure-Diastolic Value=82 Un its=mmHg 10/29/2017 8480-6 [facility] Blood Pressure-Systolic Zwmat=801 Un its=mmHg 10/29/2017 8310-5 [facility] Body Temperature Value=98.1 Units= F 10/29/2017 8867-4 [facility] Heart rate Value=76.0 Units=/min 66032-1 [facility] Weight Cnziv=840.4 Units=Lbs 8302-2 LO[facility] Height Value=60.0 Units=Inches 10/11/2017 66840-6 LO[facility] O2 % BldC Oximetry Value=95.0 Units= % 10/11/2017
--- OUTSIDE RECORDS SUMMARY | 2024-11-30 11:48 | XMS_ITS | Encounter Summary ---
Author Organization [facility] Address [address] [place] [address] Care Team Providers Care Assistant Signal Maintainer Name Role Phone Ileana Dee TRANSFUSION NURSE Primary Care Provider + Encounter Details Date Type Department Care Team (Late st Contact Info) Description 07/10/2023 Conversion Orders Only [facility] Internal Medicine [address] [place] [address] Lyric Boyd, CORRINE [address] [facility] [address] [place] [address] 240 Social History Tobacco Use Types Packs/Day Years [...] declined 02/08/2023 How often do you attend [facility] or pentecostal services? 1 to 4 times per year 02/08/2023 Do you belong to any clubs o r organizations such as jew groups, unions, fraternal or athletic groups, or [...] Date Recorded Patient Health Questionnaire-2 Score 0 06/20/2023 [facility] Occupat ional [facility] - Occupational Stress Questionnaire Answer Date Recorded [...] you got the money to buy more. Never true 04/16/20 Within the past 12 months, t he food you bought just didn't last and you didn't have money to get more. Never true 04/16/2023 PRAPARE - Transportation Answer Date Re corded In the past 12 months, has l ack of transportation kept you from medical appointments or from getting medications? No 08/2022 In the past 12 months, has l ack of transportation kept you from meetings, work, or from getting things needed for daily living? No 04/16/2023 Housing Stability Vital Sign Answer Gustavo e Recorded In the last 12 months, was t here a time when you were not able to pay the mortgage or rent on time? No 04/16/2023 [address] of Places Lived in the Last Year Not on f ile 04/16/2023 In the last 12 months, was t here a time when you did not have a steady place to sleep or slept in a custodial (including now)? No 04/16/2023 Comments Unknown Sex and Gender Information Value Date Recorded Sex Assigned at Female 09/01/2023 1:17 PM EST Legal Sex Female 11:08 PM EST Gender Identity Not on file Sexual Orientation Not on file documented as of this encounter Plan of Treatment Upcoming Encounters Date Type Department Care Team (Late st Contact Info) Description 12/16/2024 8:45 AM EDT Lab [address] [address] 12/17/2024 11:00 AM EDT Office Visit [address] [address] Ileana Dee FNP [address] [place] [phone] (Fax) 03/10/2025 3:30 PM EDT Office Visit [facility] - Nephrology [address] [address] [place] [address] documented as of this encounter Visit Diagnoses Not on filedocumented in this encounter Care Teams Assistant Signal Maintainer Relationship Specialty Start Date End Date Ileana Dee FNP (Fax) PCP - General Nurse Practitioner 10/02/24 documented as of this encounter
--- OUTSIDE RECORDS SUMMARY | 2024-11-30 11:48 | XMS_ITS | Encounter Summary ---
Author Organization [facility] Address [address] [facility] [place] [address] Care Team Providers Care Rugby Union Footballer Name Role Phone Home Loredo REGINALD Unavailable [phone] Felix Ng MD Unavailable [phone] Wolfgang Herman MD Unavailable Unavailable Kanika Deleon MD Unavailable [phone] Lyric Boyd NP Primary Care Provider + [phone] Sathish Asher MD Unavailable + [phone] Lizbeth Price Unavailable [phone] RezaVi valdes-C Unavailable Ileana Dee Unavailable [phone] Ileana Dee Primary Care Provider [phone] Encounter Details Date Type Department Care Team (Late st Contact Info) Description 12/25/2017 Prep for Surgery [facility] Steel Sampler [address] [place] [address] Ron Harper MD [address] [facility] [place] [address] [place] [address] Nuclear sclerotic cataract of left eye; Nuclear sclerotic cataract of right eye Social History Tobacco Use Types Packs/Day Years Used Date Smoking Tobacco: Never Smokeless Tobacco: Never Alcohol Use Standard Drinks/Week Comments No 0 (1 standard drink = 0.6 oz pur e alcohol) Comments No Sex and Gender Information Value Date Recorded Sex Assigned at Not on file Legal Sex Female 7:30 PM EST Gender Identity Not on file Sexual Orientation Not on file Occupation Industry Job Start Date Job End Date retired Not on file Not on file Not on file documented as of this encounter Functional Status * Are you deaf or do you have difficulty hearing? Answer Date of Assessment Author Yes 02/10/2017 11:07 AM Enrique Fernández RN * Are you blind or do you have serious difficulty seeing, even when wearing glasses? Answer Date of Assessment Author No 02/10/2017 11:07 AM Enrique Fernández RN * Does this person have serious difficulty walking or climbing stairs? Answer Date of Assessment Author Yes 08/29/2017 3:17 PM Judson Ponce RN * Do you have difficulty dressing [...] Entry Date Author No 02/10/2017 11:07 AM Enrique Fernández RN documented in this encounter Plan of Treatment Upcoming Encounters Date Type Department Care Team (Late st Contact Info) Description 02/09/2025 10:15 AM EDT Office Visit [facility] [place] [address] [place] [address] [address] [place] [address] Andrés Nuñez MD [address] [place] [address] 03/17/2025 10:45 AM EDT Office Visit [facility] Cardiology [facility]) [address] [place] [address] Felix Ng MD [address] [place] [address] 07/23/2025 12:45 PM EST Office/Infusion [facility] [place] [address] [place] [address] Sathish Asher MD [address] [place] [address] documented as of this encounter Goals Goal Patient Goal Type Associated Problems Recent Progress Patient-Stated? Author Blood Pressure < 140/90 Blood Pressure 159/68(2024 7:06 PM EDT) No Jacy Vazquez CMA Eat more fruits and vegetables Diet No Jacy Vazquez ACID CONCENTRATOR I will reduce my starch and sugar intake Diet No Jacy Vazquez ACID CONCENTRATOR Patient will decrease subjective complaints of pain [...] to 120 by DC. Exercise On track( 2:41 PM EST) No Fede Hernandez, PT I will wear proper footwear and check feet regularly Lifestyle No Jacy Vazquez ACID CONCENTRATOR I will schedule an eye exam yearly Lifestyle No Jacy Vazquez ACID CONCENTRATOR I will monitor my blood sugar as directed Lifestyle No Jacy Vazquez ACID CONCENTRATOR I will exercise 6 days a week for 30-45 minutes Lifestyle No Jacy Vazquez ACID CONCENTRATOR HEMOGLOBIN A1C < 7.0 Result Component 6.8( 8:10 AM EST) No Jacy Vazquez ACID CONCENTRATOR LDL CALC < 100 Result Component 59(06/13/2024 12:52 PM EST) Jayc Mariee Chu, ACID CONCENTRATOR documented as of this encounter Visit Diagnoses Diagnosis 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 Nuclear sclerotic cataract of right eye Senile nuclear sclerosis documented in this encounter Care Teams Rugby Union Footballer Relationship Specialty Start Date End Date Lyric Boyd NP [address] [facility] [address] [place] [address] PCP - General Internal Medicine 12/12/19 01/20/24 Ileana Dee [address] [facility] [address] [place] [address] PCP - General Nurse Practitioner 01/21/24 Home Loredo OD [address] [facility] [address] [place] [address] Consulting Physician Optometry 03/16/15 10/23/18 Felix Ng MD [address] [place] [address] Consulting Physician Cardiology 08/29/17 Wolfgang Herman MD [address] [place] [address] Consulting Physician Orthopedic Surgery 08/29/17 Kanika Deleon MD [address] [facility] [address] [place] [address] Consulting Physician Gastroenterology 12/20/17 Sathish Asher MD Replaced by [facility] [place] [address] Consulting Physician Oncology 08/02/20 Lizbeth Price PA [address] [place] [address] Physician Observatory Director Physician Observatory Director 02/14/21 Vi Cobb PA-C [address] [place] [address] [address] [place] [address] Physician Observatory Director 04/11/23 Ileana Dee [address] [place] [address] [address] [place] [address] Nurse Practitioner 01/21/24 01/21/24 documented as of this encounter
--- OUTSIDE RECORDS SUMMARY | 2024-11-30 11:48 | XMS_ITS | Encounter Summary ---
Author Organization [facility] Address [address] [place] [address] Care Team Providers Care Sanitary Inspector Name Role Phone Ileana Dee FREELANCE PHOTOGRAPHER Primary Care Provider + Encounter Details Date Type Department Care Team (Late st Contact Info) Description 04/09/2023 Conversion Orders Only [facility] Internal Medicine [address] [place] [address] Lyric Boyd, CORRINE [address] [facility] [address] [place] [address]17 Social History Tobacco Use Types Packs/Day Years [...] declined 02/08/2023 How often do you attend [facility] or anabaptist services? 1 to 4 times per year 02/08/2023 Do you belong to any clubs o r organizations such as spiritism groups, unions, fraternal or athletic groups, or [...] you are drinking? Patient does not drink 3 Q3: How often do you have si x or more drinks on one occasion? Never 02/08/2023 Overall Financial Resource Strain (CARDIA) Answe r Date Recorded How hard is it for you to pa y for the very basics like food, housing, medical care, and heating? Somewhat hard 02/08/2023 [facility] Stress Questionnaire Answer Date [...] exercise at this level? 10 min 02/08/2023 Comments Unknown Sex and Gender Information Value Date Recorded Sex Assigned at Female 09/01/2023 1:17 PM EST Legal Sex Female 11:08 PM EST Gender Identity Not on file Sexual Orientation Not on file documented as of this encounter Functional Status * Over the past 2 weeks, how often have you been bothered by any of the following problems? Question Answer Date of Assessment Author Patient Health Questionnaire-2 Score 0 04/09/2023 11:07 AM EDT Int, [facility] Inco jacquelyn Clinical Documentation Flowsheets Conversion 4 * Little interest or pleasure in doing things Answer Date of Assessment Author Not at all 04/09/2023 11:07 AM EDT Int, [facility] Incoming Clinical Documentation Flowsheets Conversion 4 * Feeling down, depressed, or hopeless Answer Date of Assessment Author Not at all 04/09/2023 11:07 AM EDT Int, h Incoming Clinical Documentation Flowsheets Conversion 4 documented as of this encounter Plan of Treatment Upcoming Encounters Date Type Department Care Team (Late st Contact Info) Description 12/16/2024 8:45 AM EDT Lab [address] [address] 12/17/2024 11:00 AM EDT Office Visit [facility] - Primary Care [address] [address] Ileana Dee FNP [address] [phone] (Fax) 03/10/2025 3:30 PM EDT Office Visit [facility] - Nephrology [address] [address] [place] [address] documented as of this encounter Visit Diagnoses Not on filedocumented in this encounter Care Teams Sanitary Inspector Relationship Specialty Start Date End Date Ileana Dee FNP (Fax) PCP - General Nurse Practitioner 10/02/24 documented as of this encounter
--- OUTSIDE RECORDS SUMMARY | 2024-11-30 11:48 | XMS_ITS | Encounter Summary ---
Author Organization [facility] Address [address] [place] [address] Care Team Providers Care Nonprofit Fundraiser Name Role Phone Ileana Dee Primary Care Provider + Encounter Details Date Type Department Care Team (Late st Contact Info) Description 12/07/2021 Conversion Orders Only [facility] HISTORICAL DATA CONVERSIONS [address] [place] [address] Social History Tobacco Use Types Packs/Day Years [...] Info) Description 12/16/2024 8:45 AM EDT Lab [address] [address] 12/17/2024 11:00 AM EDT Office Visit [facility] Primary Care [address] [address] Ileana Dee FNP [address] [place] [phone] (Fax) 03/10/2025 3:30 PM EDT Office Visit [facility] Nephrology [address] [address] [place] [address] documented as of this encounter Visit Diagnoses Not on filedocumented in this encounter Care Teams Nonprofit Fundraiser Relationship Specialty Start Date End Date Ileana Dee FNP PCP - General Nurse Practitioner 10/02/24 documented as of this encounter
--- OUTSIDE RECORDS SUMMARY | 2024-11-30 11:48 | XMS_ITS | Encounter Summary ---
Author Organization [facility] Address [address] [place] [address] Care Team Providers Care Chuck Wagon Driver Name Role Phone Ileana Dee Primary Care Provider + Encounter Details Date Type Department Care Team (Late st Contact Info) Description 01/12/2023 Conversion Orders Only [facility] HISTORICAL DATA CONVERSIONS [address] [place] [address] Social History Tobacco Use Types Packs/Day Years [...] Info) Description 12/16/2024 8:45 AM EDT Lab [address] [address] 12/17/2024 11:00 AM EDT Office Visit [facility] Primary Care [address] [address] Ileana Dee FNP [address] [place] [phone] (Fax) 03/10/2025 3:30 PM EDT Office Visit [facility] Nephrology [address] [address] [place] [address] documented as of this encounter Visit Diagnoses Not on filedocumented in this encounter Care Teams Chuck Wagon Driver Relationship Specialty Start Date End Date Ileana Dee FNP PCP - General Nurse Practitioner 10/02/24 documented as of this encounter
--- OUTSIDE RECORDS SUMMARY | 2024-11-30 11:48 | XMS_ITS | Encounter Summary ---
Author Organization [facility] Address [address] [place] [address] Care Team Providers Care Herb Digger Name Role Phone Ileana Dee Primary Care Provider + Encounter Details Date Type Department Care Team (Late st Contact Info) Description 07/19/2012 Conversion Orders Only [facility] HISTORICAL DATA CONVERSIONS [address] [place] [address] Social History Tobacco Use Types Packs/Day Years [...] Info) Description 12/16/2024 8:45 AM EDT Lab [address] [address] 12/17/2024 11:00 AM EDT Office Visit Count Includes [facility] - Primary Care [address] [phone] Ileana Dee FNP [address] [place] [phone] (Fax) 03/10/2025 3:30 PM EDT Office Visit Count Includes [facility] - Nephrology [address] [address] [place] [address] documented as of this encounter Visit Diagnoses Not on filedocumented in this encounter Care Teams Herb Digger Relationship Specialty Start Date End Date Ileana Dee FNP PCP - General Nurse Practitioner 10/02/24 documented as of this encounter
--- OUTSIDE RECORDS SUMMARY | 2024-11-30 11:48 | XMS_ITS | Encounter Summary ---
Author Organization [facility] Address [address] [place] [address] Care Team Providers Care Painter Helper Spray Name Role Phone Ileana Dee INSULATING MACHINE OPERATOR Primary Care Provider + Encounter Details Date Type Department Care Team (Late st Contact Info) Description 07/02/2023 Conversion Orders Only [facility] Internal Medicine [address] [place] [address] Lyric Boyd, CORRINE [address] [facility] [address] [place] [address] Social History Tobacco Use Types Packs/Day Years [...] How often do you attend [facility] or yazidism services? 1 to 4 times per year 02/08/2023 Do you belong to any clubs o r organizations such as sabianist groups, unions, fraternal or athletic groups, or [...] Recorded Patient Health Questionnaire-2 Score 0 06/20/2023 [facility] - Occupational Stress Questionnaire Answer Date [...] place to sleep or slept in a alf (including now)? No 04/16/2023 Comments Unknown Sex and Gender Information Value Date Recorded Sex Assigned at Female 09/01/2023 1:17 PM EST Legal Sex Female 11:08 PM EST Gender Identity Not on file Sexual Orientation Not on file documented as of this encounter Plan of Treatment Upcoming Encounters Date Type Department Care Team (Late st Contact Info) Description 12/16/2024 8:45 AM EDT Lab [address] [address] 12/17/2024 11:00 AM EDT Office Visit [address] [address] Ileana Dee FNP [address] [place] [phone] (Fax) 03/10/2025 3:30 PM EDT Office Visit [facility] - Nephrology [address] [address] [place] [address] documented as of this encounter Visit Diagnoses Not on filedocumented in this encounter Care Teams Painter Helper Spray Relationship Specialty Start Date End Date Ileana Dee FNP (Fax) PCP - General Nurse Practitioner 10/02/24 documented as of this encounter
--- OUTSIDE RECORDS SUMMARY | 2024-11-30 11:48 | XMS_ITS | Encounter Summary ---
Author Organization [facility] Address [address] [place] [address] Care Team Providers Care Iron Assorter Name Role Phone Luiz Ileana Toya WARBLE SAW OPERATOR Primary Care Provider + Encounter Details Date Type Department Care Team (Late st Contact Info) Description 06/20/2023 Conversion Orders Only [facility] HISTORICAL DATA CONVERSIONS [address] [place] [address] Social History Tobacco Use Types Packs/Day Years [...] often do you attend chur ch or mandaen services? 1 to 4 times per year 02/08/2023 Do you belong to any clubs o r organizations such as buddhism groups, unions, fraternal or athletic groups, or [...] [facility] - [...] money to buy more. Never true 04/16/20 23 Within the past 12 months, t he [...] place to sleep or slept in a care home (including now)? No 04/16/2023 Comments Unknown Sex [...] Assessment Author Patient Health Questionnaire-2 Score 0 06/20/2023 2:26 PM EST [facility], [facility] Incom ing Clinical Documentation Flowsheets Conversion 4 * Little interest or pleasure in doing things Answer Date of Assessment Author Not at all 06/20/2023 2:26 PM EST [facility], [facility] Incoming Clinical Documentation Flowsheets Conversion 4 * Feeling down, depressed, or hopeless Answer Date of Assessment Author Not at all 06/20/2023 2:26 PM EST [facility], [facility] Incoming Clinical Documentation Flowsheets Conversion 4 documented as of this encounter Plan of Treatment Upcoming Encounters Date Type Department Care Team (Late st Contact Info) Description 12/16/2024 8:45 AM EDT Lab [address] [address] 12/17/2024 11:00 AM EDT Office Visit [address] [address] Ileana Dee FNP [address] [place] [phone] (Fax) 03/10/2025 3:30 PM EDT Office Visit [facility] Nephrology [address] [address] [place] [address] documented as of this encounter Visit Diagnoses Not on filedocumented in this encounter Care Teams Iron Assorter Relationship Specialty Start Date End Date Ileana Dee FNP (Fax) PCP - General Nurse Practitioner 10/02/24 documented as of this encounter
--- OUTSIDE RECORDS SUMMARY | 2024-11-30 11:48 | XMS_ITS | Encounter Summary ---
Author Organization [facility] Address [address] [place] [address] Care Team Providers Care Director Of Corporate Responsibility Name Role Phone Ileana Dee [facility] Primary Care Provider + Encounter Details Date Type Department Care Team (Late Contact Info) Description 01/08/2023 Conversion Orders Only [facility] [employer] HISTORICAL DATA CONVERSIONS [address] [place] [address] Social History Tobacco Use Types Packs/Day Years [...] Assessment Author Patient Health Questionnaire-2 Score 0 01/11/2023 8:40 AM EDT Int, [facility] Incom ing Clinical Documentation Flowsheets Conversion 2 * Little interest or pleasure in doing things Answer Date of Assessment Author Not at all 01/11/2023 8:40 AM EDT [facility], [facility] Incoming Clinical Documentation Flowsheets Conversion 2 * Feeling down, depressed, or hopeless Answer Date of Assessment Author Not at all 01/11/2023 8:40 AM EDT [facility], [facility] Incoming Clinical Documentation Flowsheets Conversion 2 documented as of this encounter Plan of Treatment Upcoming Encounters Date Type Department Care Team (Late Contact Info) Description 12/16/2024 8:45 AM EDT Lab [facility] - Primary Care [place] [address] [place] [address] [address] [place] [address] 244-47512/17/2024 11:00 AM EDT Office Visit [facility] - Primary Care [address] [address] Ileana Dee FNP [address] [phone] (Fax) 03/10/2025 3:30 PM EDT Office Visit [facility] - Nephrology [address] [address] [place] [address] documented as of this encounter Visit Diagnoses Not on filedocumented in this encounter Care Teams Director Of Corporate Responsibility Relationship Specialty Start Date End Date Ileana Dee FNP (Fax) PCP - General Nurse Practitioner 10/02/24 documented as of this encounter
--- OUTSIDE RECORDS SUMMARY | 2024-11-30 11:48 | XMS_ITS | Encounter Summary ---
Author Organization [facility] Address [address] [place] [address] Care Team Providers Care Body Shop Supervisor Name Role Phone Ileana Dee [facility] Primary Care Provider + Encounter Details Date Type Department Care Team (Late st Contact Info) Description 02/02/2023 Conversion Orders Only [facility] Internal Medicine [address] [place] [address] Lyric Boyd, CORRINE [address] [address] Social History Tobacco Use Types Packs/Day Years [...] Info) Description 12/16/2024 8:45 AM EDT Lab [address] [address] 499-91912/17/2024 11:00 AM EDT Office Visit [address] [address] Ileana Dee FNP [address] [place] [phone] (Fax) 03/10/2025 3:30 PM EDT Office Visit [facility] Nephrology [address] [address] [place] [address] documented as of this encounter Visit Diagnoses Not on filedocumented in this encounter Care Teams Body Shop Supervisor Relationship Specialty Start Date End Date Ileana Dee FNP PCP - General Nurse Practitioner 10/02/24 documented as of this encounter
--- OUTSIDE RECORDS SUMMARY | 2024-11-30 11:48 | XMS_ITS | Encounter Summary ---
Author Organization [facility] Address [address] [place] [address] Care Team Providers Care Central Supply Worker Name Role Phone Ileana Dee [facility] Primary Care Provider + Encounter Details Date Type Department Care Team (Late st Contact Info) Description 03/16/2016 [place] [address] Social History Tobacco Use Types Packs/Day Years [...] Info) Description 12/16/2024 8:45 AM EDT Lab [address] [address] 12/17/2024 11:00 AM EDT Office Visit [address] [phone] Ileana Dee [address] [address] 03/10/2025 3:30 PM EDT Office Visit [facility] Nephrology [address] [address] [place] [address] documented as of this encounter Visit Diagnoses Not on filedocumented in this encounter Care Teams Central Supply Worker Relationship Specialty Start Date End Date Ileana Dee FNP PCP - General Nurse Practitioner 10/02/24 documented as of this encounter
--- OUTSIDE RECORDS SUMMARY | 2024-11-30 11:48 | XMS_ITS | Encounter Summary ---
Author Organization [facility] Address [address] [place] [address] Care Team Providers Care Pricing Clerk Name Role Phone Ileana Dee FINE CRAFT ARTIST Primary Care Provider + Encounter Details Date Type Department Care Team (Late st Contact Info) Description 10/16/2022 Conversion Orders Only [facility] Internal Medicine [address] [place] [address] Lyric Boyd, CORRINE [address] [address] Social History Tobacco Use Types Packs/Day Years [...] Info) Description 12/16/2024 8:45 AM EDT Lab [address] [address] 717-89512/17/2024 11:00 AM EDT Office Visit [address] [address] Ileana Dee FNP [address] [place] [phone] (Fax) 03/10/2025 3:30 PM EDT Office Visit [facility] Nephrology [address] [address] [place] [address] documented as of this encounter Visit Diagnoses Not on filedocumented in this encounter Care Teams Pricing Clerk Relationship Specialty Start Date End Date Ileana Dee FNP PCP - General Nurse Practitioner 10/02/24 documented as of this encounter
--- OUTSIDE RECORDS SUMMARY | 2024-11-30 11:48 | XMS_ITS | Encounter Summary ---
Author Organization Address [address] [place] [address] Care Team Providers Care Gas Regulator Repairer Helper Name Role Phone Ileana Dee BRAN MIXER Primary Care Provider + Encounter Details Date Type Department Care Team (Late st Contact Info) Description 03/04/2020 Conversion Orders Only [facility] Internal Medicine [address] [place] [address] Lyric Boyd, CORRINE [address] [address] Social History Tobacco Use Types Packs/Day Years [...] Info) Description 12/16/2024 8:45 AM EDT Lab [address] [phone]/17/2024 11:00 AM EDT Office Visit [address] [address] Ileana Dee FNP [address] [place] [address] [phone] (Fax) 03/10/2025 3:30 PM EDT Office Visit [facility] Nephrology [address] [address] [place] [address] documented as of this encounter Visit Diagnoses Not on filedocumented in this encounter Care Teams Gas Regulator Repairer Helper Relationship Specialty Start Date End Date Ileana Dee FNP PCP - General Nurse Practitioner 10/02/24 documented as of this encounter
--- OUTSIDE RECORDS SUMMARY | 2024-11-30 11:48 | XMS_ITS | Encounter Summary ---
Author Organization [facility] Address [address] [place] [address] Care Team Providers Care Pulp House Supervisor Name Role Phone Ileana Dee [facility] Primary Care Provider + Encounter Details Date Type Department Care Team (Late Contact Info) Description 01/21/2021 Conversion Orders Only [facility] HISTORICAL DATA CONVERSIONS [address] [place] [address] Social History Tobacco Use Types Packs/Day Years [...] Assessment Author Patient Health Questionnaire-2 Score 0 01/21/2021 9:19 AM EDT Int, [facility] Incom ing Clinical Documentation Flowsheets Conversion 2 * Little interest or pleasure in doing things Answer Date of Assessment Author Not at all 01/21/2021 9:19 AM EDT [facility] Incoming Clinical Documentation Flowsheets Conversion 2 * Feeling down, depressed, or hopeless Answer Date of Assessment Author Not at all 01/21/2021 9:19 AM EDT [facility] Incoming Clinical Documentation Flowsheets Conversion 2 documented as of this encounter Plan of Treatment Upcoming Encounters Date Type Department Care Team (Late Contact Info) Description 12/16/2024 8:45 AM EDT Lab [facility] - Primary Care [place] [address] [place] [address] [address] [place] [address] 366-47512/17/2024 11:00 AM EDT Office Visit [facility] - Primary Care [address] [address] Ileana Dee FNP [address] [phone] (Fax) 03/10/2025 3:30 PM EDT Office Visit [facility] - Nephrology [address] [address] [place] [address] documented as of this encounter Visit Diagnoses Not on filedocumented in this encounter Care Teams Pulp House Supervisor Relationship Specialty Start Date End Date Ileana Dee FNP (Fax) PCP - General Nurse Practitioner 10/02/24 documented as of this encounter
--- OUTSIDE RECORDS SUMMARY | 2024-11-30 11:48 | XMS_ITS | Encounter Summary ---
Author Organization [facility] Address [address] [place] [address] Care Team Providers Care Home Energy Rater Name Role Phone Ileana Dee [facility] Primary Care Provider + Encounter Details Date Type Department Care Team (Late st Contact Info) Description 04/13/2022 Conversion Orders Only [facility] Internal Medicine [address] [place] [address] Lyric Boyd, CORRINE [address] [address] Social History Tobacco Use Types Packs/Day Years [...] Info) Description 12/16/2024 8:45 AM EDT Lab [address] [phone]/17/2024 11:00 AM EDT Office Visit [address] [address] Ileana Dee FNP [address] [place] [phone] (Fax) 03/10/2025 3:30 PM EDT [facility] Nephrology [address] [address] [place] [address] documented as of this encounter Visit Diagnoses Not on filedocumented in this encounter Care Teams Home Energy Rater Relationship Specialty Start Date End Date Ileana Dee FNP PCP - General Nurse Practitioner 10/02/24 documented as of this encounter
[2024-11-30 11:50] VITALS: BP 138/53; PULSE 88; RESP 20; TEMP 36.8; O2SAT 100
--- OUTSIDE RECORDS SUMMARY | 2024-11-30 11:51 | XMS_ITS ---
Author Organization [facility] Care Team Providers Care Crisis Manager Name Role Phone Lizbeth Delgado Unavailable Unavailable Jak Carson V Unavailable Unavailable Allergies and adverse reactions Code CodeSystem Substance Reaction Severity StartDate Concern Status Lactose Intolerant Unknown 10/16/2017 ac tive Darvon Unknown 10/09/2017 active Darvocet Nausea (code- 200270051, SNOMED CT) Unknown 10/09/2017 active 2551 RXNORM Ciprofloxacin Unknown 10/09/2017 active Care Team Name Role Address Phone Organization Dates Lizbeth Delgado [address] [place], [address], [place] (Office): : (Pager): [facility] 10/10/2017 - 10/30/2017 Jak Carson [address] [place] [address], [phone], [place] (Office): : 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 10/10/[address] active 7 BILATERAL PRIMARY OSTEOARTHRITIS OF KNEE 10/10/[address] active 8 CHRONIC KIDNEY DISEASE, STAGE 3 (MODERATE) 10/10/[address] active 9 DISPLACED INTERTROCHANTERIC FRACTURE OF LEFT FEMUR, SUBSEQUENT ENCOUNTER FOR CLOSED FRACTURE WITH ROUTINE HEALING 10/10/[address] active 10 DYSPHAGIA, UNSPECIFIED 10/10/[address] active 11 ENCOUNTER FOR OTHER SPECIFIED AFTERCARE 10/10/[address] active 12 GASTRO-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 10/10/[address] active 13 GOUT, UNSPECIFIED 10/10/[address] active 14 HYPERLIPIDEMIA, UNSPECIFIED 10/10/[address] active 15 HYPERTENSIVE CHRONIC KIDNEY DISEASE WITH STAGE 1 THROUGH STAGE 4 CHRONIC KIDNEY DISEASE, OR UNSPECIFIED CHRONIC KIDNEY DISEASE 10/10/[address] active 16 IRON DEFICIENCY ANEMIA, UNSPECIFIED 10/10/[address] active 17 OBESITY, UNSPECIFIED 10/10/[address] active 18 OTHER SPECIFIED DISORDERS OF BONE DENSITY AND STRUCTURE, UNSPECIFIED SITE 10/10/[address] active 19 PERSONAL HISTORY OF MALIGNANT NEOPLASM OF BREAST 10/10/[address] active 20 PRESENCE OF AORTOCORONARY BYPASS GRAFT 10/10/[address] active 21 TYPICAL ATRIAL FLUTTER 10/10/[address] active 22 UNSPECIFIED OSTEOARTHRITIS, UNSPECIFIED SITE 10/10/[address] active 23 VITAMIN D DEFICIENCY, UNSPECIFIED 10/10/[address] active Reason for Referral No Reasons for Referral Entered Social History Social History Observation Description Start Date End Date Code Code System Current Smoking Status Tobacco smoking consumption unknown 771685425 SNOMED CT Sex Assigned At Female 1935 22039-4 [facility] Gender Identity Vital Signs Code Code System Vitals Name Values and Units Timing Information 48943-6 [facility] Pain Level Value=0.0 10/30/2017 2339-0 [facility] Blood Sugar Phxmg=678.0 Units=mg/dL 10/30/2017 9279-1 [facility] Respiratory Rate Value=20.0 Units=/m in 10/29/2017 8462-4 [facility] Blood Pressure-Diastolic Value=82 Un its=mmHg 10/29/2017 8480-6 [facility] Blood Pressure-Systolic Lvsrl=939 Un its=mmHg 10/29/2017 8310-5 [facility] Body Temperature Value=98.1 Units= F 10/29/2017 8867-4 [facility] Heart rate Value=76.0 Units=/min 63595-9 [facility] Weight Payqk=074.4 Units=Lbs 8302-2 LOINC Height Value=60.0 Units=Inches 10/11/2017 49038-3 LOINC O2 % BldC Oximetry Value=95.0 Units= % 10/11/2017
--- NOTE | 2024-11-30 12:26 | ED.GENADULT ---
HPI - General Adult General Chief complaint: Head Injury Stated complaint: head inj Source: patient and family Mode of arrival: ambulatory Limitations: no limitations History of Present Illness HPI narrative: Patient presents for evaluation of head injury that occurred this morning. She lives in [place] but is visiting family, staying with her daughter. She got up out of bed around 530 this morning and fell, hitting her left side of the face against a piece of furniture. She does not believe she had a loss of consciousness. She is not believe she had any precipitating symptoms prior to the time of the fall, although she has Alzheimer's. Family state her baseline neuro status varies but she is always oriented to person, most of the time place, and some of the time to date. She is on aspirin 81 mg daily. She is not anticoagulated. Who presents with bruising to the left side of her face but denies any pain. She denies any nausea or vomiting since the episode. Denies any other injuries. Related Data Home Medications Medication Instructions Recorded Confirmed Last Taken Type aspirin 11/30/24 Unknown History magnesium oxide 400 mg (241.3 mg mg 11/30/24 Unknown History magnesium) tablet pioglitazone 45 mg tablet mg 11/30/24 Unknown History potassium chloride 20 mEq meq PO 11/30/24 Unknown History tablet,extended release(part/cryst) simvastatin 10 mg tablet mg 11/30/24 Unknown History sodium bicarbonate 650 mg tablet mg 11/30/24 Unknown History Allergies Allergy/AdvReac Type Severity Reaction Status Date / Time mannitol Allergy Severe UNKNOWN Verified 06/24/18 19:35 water for injection,sterile Allergy Severe UNKNOWN Verified 06/24/18 19:35 zoledronic acid Allergy Severe UNKNOWN Verified 06/24/18 19:35 codeine Allergy Intermediate N/V Verified 06/24/18 19:35 tramadol Allergy Intermediate N/V Verified 06/24/18 19:35 acetaminophen Allergy Mild N/V Verified 06/24/18 19:35 propoxyphene Allergy Mild N/V Verified 06/24/18 19:35 Review of Systems Review of Systems: CONSTITUTIONAL: Denies fever, chills, or sweats. EYES: Denies visual changes, redness, or discharge. ENT: Denies rhinorrhea, congestion, sore throat, or otalgia. CARDIOVASCULAR: Denies chest pain, palpitations, or edema. RESPIRATORY: Denies cough or dyspnea. GASTROINTESTINAL: Denies abdominal pain, nausea, vomiting, or diarrhea. GENITOURINARY: Denies dysuria or hematuria. SKIN:Reports left sided facial bruising. Denies rash or itching. MUSCULOSKELETAL: Denies back pain, joint pain, or myalgia. NEUROLOGIC: Denies headache, numbness, dizziness, or weakness. PSYCHIATRIC: Denies anxiety or depression. [facility] Past Medical History Medical History Hypertension Diabetes Alzheimer dementia Surgical History Surgical History No pertinent past surgical history Family History Family History Mother Family history non-contributory Social History Social History Substance use: never Living arrangements: with family Gender identity (if verbalized by the patient): Female Sexual Orientation (if Verbalized by the Patient): Straight or Heterosexual Spiritual care concerns: No Exam Narrative: GENERAL: Well-appearing, well-nourished, and in no acute distress. HEAD: Normocephalic EYES: PERRLA and EOMI. ENT: Nares clear, no rhinorrhea or epistaxis. Mucous membranes moist. Oropharynx without tonsillar hypertrophy exudate or other lesions. Bilateral TMs pearly alexander nonbulging NECK: Supple. No adenopathy or masses. No carotid bruits or JVD CHEST: Clear to auscultation. No respiratory distress. No wheezes rales or rhonchi HEART: Regular rate and rhythm. No murmur heard. Normal peripheral pulses. ABDOMEN: Soft, nontender, nondistended, normal active bowel sounds. EXTREMITIES: Normal range of motion. No edema. SKIN: There is left-sided facial ecchymosis. Warm, dry, no rash. NEURO: No focal deficits. Alert and oriented x3. PSYCH: Normal mood and affect. Course Course Emergency Course: This is an 89-year-old female who presented for evaluation after a fall this morning. Given her age, she qualifies for CT imaging. [facility] is facility of preference by patient family. Contacted to the ER at [facility] and spoke with RN, Mag, indicates that Dr. Marvin will accept pt for transfer there. Pt transferred via private vehicle. Level of Care: Express Care Visit Vital Signs Vital signs: Vital Signs Temperature 36.8 C 11/30/24 11:50 Pulse Rate 88 11/30/24 11:50 Respiratory Rate 20 11/30/24 11:50 Blood Pressure 138/53 L 11/30/24 11:50 Pulse Oximetry 100 11/30/24 11:50 Oxygen Delivery Room Air 11/30/24 11:50 Temperature 36.8 C 11/30/24 11:50 Pulse Rate 88 11/30/24 11:50 Respiratory Rate 20 11/30/24 11:50 Blood Pressure 138/53 L 11/30/24 11:50 Pulse Oximetry 100 11/30/24 11:50 Oxygen Delivery Room Air 11/30/24 11:50 Medical Decision Making Vital Signs Vital Signs: Vital Signs Temperature 36.8 C 11/30/24 11:50 Pulse Rate 88 11/30/24 11:50 Respiratory Rate 20 11/30/24 11:50 Blood Pressure 138/53 L 11/30/24 11:50 Pulse Oximetry 100 11/30/24 11:50 Oxygen Delivery Room Air 11/30/24 11:50 Temperature 36.8 C 11/30/24 11:50 Pulse Rate 88 11/30/24 11:50 Respiratory Rate 11/30/24 11:50 Blood Pressure 138/53 L 11/30/24 11:50 Pulse Oximetry 100 11/30/24 11:50 Oxygen Delivery Room Air 11/30/24 11:50 Discharge Plan Discharge Clinical Impression: Contusion of head Patient Disposition: Acute Care Hospital Condition: Stable Patient Language: Cameroonian Prescriptions: No Action simvastatin 10 mg tablet pioglitazone 45 mg tablet potassium chloride 20 mEq tablet,ER particles/crystals PO magnesium oxide 400 mg (241.3 mg magnesium) tablet sodium bicarbonate 650 mg tablet aspirin Follow-up/Referrals: PHYSICIAN NOT ON STAFF,NONSTAFF [Primary Care Provider] - Time of Disposition: 12:23
== END 2024-11-30 12:23 | disposition short-term general hospital (02) ==
PROVIDERS: Emergency Provider Nurse Practitioner
DX: S00.93XA Contusion of unspecified part of head, initial encounter (principal); W19.XXXA Unspecified fall, initial encounter; I10 Essential (primary) hypertension; E11.9 Type 2 diabetes mellitus without complications; G30.9 Alzheimer's disease, unspecified; F02.80 Dementia in other diseases classified elsewhere, unspecified severity, without behavioral disturbance, psychotic disturbance, mood disturbance, and anxiety; Z79.82 Long term (current) use of aspirin
CPT/HCPCS: 99202; G0463